=== PATIENT | female | born 1930 | race Caucasian/White ===

== ENCOUNTER 2017-01-19 11:37 | Outpatient (CLI) | payer MEDICARE, MEDICAID ==
[2017-01-19 12:38] LABS: Bilirubin Negative (Negative); Blood, Urine Trace (Negative); Clarity Clear (Clear); Glucose, Urine (Dipstick) Negative (Negative); Leukocyte Moderate (Negative); Nitrite Positive (Negative); Protein, Urine (Dipstick) Negative (Neg-Trace); Specific Gravity, Urine 1.015 (1.005-1.030); Urobilinogen 0.2 mg/dL (0.2-1.0)
[2017-01-19 12:40] LABS: #Basophils 0.1 thou/uL (0.0-0.2); #Eosinphils 0.7 thou/uL (0.0-0.7); #Lymphocytes 1.1 thou/uL (1.20-3.40); #Monocytes 0.8 thou/uL (0.11-0.59); #Neutrophils 6.6 thou/uL (1.40-6.50); %Basophils 1.3 % (0.0-1.0); %Eosinophils 7.8 % (0.0-10.0); %Lymphocytes 11.6 % (21.0-51.0); %Monocytes 8.4 % (0.0-10.0); %Neutrophils 70.8 % (42.0-75.0); Hemoglobin 12.9 g/dL (12.0-16.0); Mean Corpuscular HGB CONC 31.4 g/dL (32.0-36.0); Mean Corpuscular Hemoglobin 31.3 pg (27.0-31.0); Mean Corpuscular Volume 99.6 fl (81.0-99.0); Mean Platelet Volume 7.2 fL (7.4-10.4); Platelet Count 356 thou/uL (130-400); RBC Distribution Width 11.9 % (11.5-14.5); Red Blood Cell (RBC) Count 4.13 mill/uL (4.20-5.40); White Blood Cell (WBC) Count 9.3 thou/uL (4.8-10.8)
[2017-01-19 12:58] LABS: ALT (SGPT) 16 U/L (0-55); AST (SGOT) 18 U/L (5-34); Albumin 3.7 g/dL (3.4-4.8); Alkaline Phosphatase 63 U/L (40-150); Anion Gap 15 mmol/L (10-20); BUN (Urea Nitrogen) 15 mg/dL (9.8-20.1); Bilirubin, Total 0.4 mg/dL (0.2-1.2); Calc. Creatinine Clearance 0 mL/min (70-130); Calcium 8.8 mg/dL (7.8-10.44); Carbon Dioxide 24 mmol/L (23-31); Cardiac Risk 3.7 (Less than 4.5); Chloride 107 mmol/L (98-107); Cholesterol 136 mg/dL (< 200 Desired); Estimated GFR-MDRD 57; Globulin 2.4 g/dL (2.4-3.5); Glucose 88 mg/dL (83-110); HDL Cholesterol 37 mg/dL (>60 Neg Risk); LDL Cholesterol, Calculated 74 mg/dL; Potassium 4.5 mmol/L (3.5-5.1); Protein, Total 6.1 g/dL (5.8-8.1); Sodium 141 mmol/L (136-145); Triglycerides 124 mg/dL (Less than 150)
[2017-01-19 13:02] LABS: Bacteria/HPF 2+ HPF (None Seen); RBC/HPF 0-3 HPF (0-3); Squamous Epithelial 0-3 HPF (0-3)
== END 2017-01-19 11:38 | disposition home or self-care (01) ==
LOC: NAVSJIPCSP 11:37
PROVIDERS: ATTEND Internal Medicine
DX: E78.5 Hyperlipidemia, unspecified (principal); I11.9 Hypertensive heart disease without heart failure; Z79.899 Other long term (current) drug therapy
CPT/HCPCS: 36415; 80053; 80061; 81003; 81015; 85025

== ENCOUNTER 2017-05-04 10:39 | Outpatient (CLI) | payer MEDICARE, MEDICAID ==
[2017-05-04 14:18] LABS: Cardiac Risk 3.6 (Less than 4.5)
== END 2017-05-04 10:40 | disposition home or self-care (01) ==
LOC: NAVSJIPCSP 10:39
PROVIDERS: ATTEND Internal Medicine
DX: E78.5 Hyperlipidemia, unspecified (principal); Z79.899 Other long term (current) drug therapy
CPT/HCPCS: 36415; 80061

== ENCOUNTER 2018-02-18 17:25 | Inpatient (IN) | payer MEDICARE, MEDICAID ==
[2018-02-18] MEDS ORDERED: Lidocaine 2% Jelly 5 ML TUBE ONE (18:46)
[2018-02-18] MEDS ORDERED: Lidocaine Viscous Sol 2% 15 ml UD Cup ONE (18:47)
[2018-02-18] MEDS: Lidocaine Viscous Sol 2% 15 ml UD Cup SSP PRN (19:00)
[2018-02-18] MEDS: Dicyclomine 20 MG TAB PO SCH (21:42)
[2018-02-18] MEDS: Carbidopa/Levodopa 10-100 mg Tablet PO SCH (21:42)
[2018-02-18] MEDS: TROSPIUM 20 MG TABLET PO SCH (21:43)
[2018-02-19] MEDS: Acetaminophen 500 MG TAB PO PRN ×2 (00:47→21:04)
[2018-02-19] MEDS ORDERED: Lidocaine Viscous Sol 2% 15 ml UD Cup ONE ×2 (00:50→08:51)
[2018-02-19] MEDS: Lidocaine Viscous Sol 2% 15 ml UD Cup SSP PRN ×4 (00:51→21:03)
--- NOTE | 2018-02-19 00:58 | HP ---
DATE OF ADMISSION: 02/18/2018 CHIEF COMPLAINT: 1. Resolving acute hypoxic respiratory failure. 2. Resolving community-acquired pneumonia. 3. Resolving acute on chronic diastolic congestive heart failure. 4. Coronary artery disease with recent [id number] myocardial infarction and significant decond itioning. BRIEF HISTORY: This is a very pleasant 87-year-old female, who was admitted to [facility] with acute hypoxic respiratory failure. She was diagnosed with human metapneumovirus. Initially, she was placed on IV antibiotics, which were discontinued. She also had non-STEMI due t o demand ischemia. She had an episode of confusion, which was diagnosed with metabolic encephalopath y. She did come in with renal insufficiency, which has resolved. She also had an episode of atrial fibrillation and was started on digoxin by Cardiology. She was not felt to be a candidate for antico agulation due to her risk for falls. She was also diuresed due to acute on chronic diastolic congest brittney heart failure. She is now on nasal cannula. She has been noted to be significantly deconditione d and the initial plan was for her to go home with home health, but they felt that she may benefit fr om some inpatient therapy in a [facility] facility, and so has been transferred here. Ms. Sterling does complain of some soreness in her mouth, but otherwise she denies any concerns or questions. Sh e denies any chest pain. She denies any shortness of breath. She is resting comfortably. Denies an y fever or chills. Her cough is much improved. PAST MEDICAL HISTORY: 1. Hypertension. 2. Dyslipidemia. 3. Gastroesophageal reflux disease. 4. Hypothyroidism. 5. Irritable bowel syndrome. 6. Vitamin B12 deficiency. 7. Degenerative joint disease. 8. Recent episode of atrial fibrillation, rate controlled. 9. Vrz-[id number]-[id number] elevation myocardial infarction likely due to demand ischemia. 10. Chronic diastolic congestive heart failure. 11. Possible Parkinson. 12. Obesity. 13. Significant deconditioning. 14. Anxiety and depression. PAST SURGICAL HISTORY: 1. Appendectomy. 2. Total abdominal hysterectomy. 3. Left femur fracture requiring surgery x2. FAMILY HISTORY: Noncontributory to current admission. PSYCHOSOCIAL HISTORY: She lives at home. Denies any tobacco, alcohol, or IV drug abuse. She was mo bile with her walker. ALLERGIES: PENICILLIN and CODEINE. CURRENT MEDICATIONS: She has been transferred here on the following medications: 1. Ecotrin 81 mg daily. 2. Lipitor 20 mg daily. 3. Sinemet 10/100, one tablet t.i.d. 4. Celexa 20 mg daily. 5. Digoxin 0.125 mg daily. 6. Lasix 40 mg daily. 7. Synthroid 50 mcg daily in the morning on an empty stomach. 8. Bentyl 10 mg t.i.d. 9. Lisinopril 2.5 mg daily. 10. Zantac 150 mg daily. Zantac is supposed to be 150 b.i.d. 11. VESIcare 10 mg daily. REVIEW OF SYSTEMS: Cardiovascular: The patient denies any chest pain at this time. She states her shortness of breath is much improved. Denies any PND or orthopnea. Denies any palpitations. Respir atory: Her cough is much improved. Denies any pleuritic-type chest pain. Denies any hemoptysis or expectoration. Gastrointestinal: Denies any nausea, vomiting, diarrhea, constipation, hematemesis, melena, hematochezia. She did have an episode of diarrhea in the hospital, but that has since [facility] ed. If she has another episode, we will do stool for C. diff. Genitourinary: Denies any frequency, urgency, dysuria, hematuria. She is on VESIcare. Central nervous system: Generalized weakness. H EENT: No difficulty with speech, hearing, or swallowing. Head/Neck: She has not noticed any change in vision or any enlarged lymph nodes. Skin: She denies any rash. PHYSICAL EXAMINATION: GENERAL: Very pleasant 87-year-old, overweight, female who is resting comfortably in no ap parent distress. She responds appropriately to questions. She is alert, awake, and oriented x3. Sh e does have hoarse voice. VITAL SIGNS: She is afebrile, heart rate 70, respirations 18, oxygen saturation 98% on 2 liters, blo od pressure is 100/57. HEENT: Normocephalic, atraumatic. Pupils equally reactive to light and accommodation. NECK: No JVD, thyromegaly, cervical lymphadenopathy, throat exudates. No carotid bruits. CARDIOVASCULAR: S1, S2 plus. Rate and rhythm are irregularly irregular. Systolic murmur 2/6 heard in the mitral region. RESPIRATORY: Normal vesicular breath sounds with decreased air entry in the bases. Occasional rhonc hi. ABDOMEN: Soft, obese, nontender. Bowel sounds heard in all quadrants. EXTREMITIES: Without cyanosis or clubbing. Trace edema. Degenerative joint disease is present. CENTRAL NERVOUS SYSTEM: Grossly nonfocal. LABORATORY DATA: Her last laboratory values done were on the , which showed slight anemia with h emoglobin of 8.4 and 26.4. She did have an elevated white count of 16.5. She has not had any lab va lues since then. We will order a BMP and CBC for the morning to monitor her anemia, her leukocytosis , and her renal function. Last BUN and creatinine were 28 and 1.11. IMPRESSION: 1. Resolving acute hypoxemic respiratory failure due to community-acquired pneumonia from human meta pneumovirus. 2. Resolving acute on chronic diastolic congestive heart failure. 3. Atrial fibrillation with controlled rate. 4. Hypertension, well controlled. 5. Dyslipidemia. 6. Gastroesophageal reflux disease. 7. Hypothyroidism. 8. Tremors, likely due to Parkinson. 9. Deconditioning. 10. Obesity. 11. Degenerative joint disease. 12. Anxiety and depression. 13. Irritable bowel syndrome. PLAN: 1. Continue current medications. 2. Heart healthy diet. 3. DVT and stress ulcer prophylaxis with PlexiPulse and Zantac. 4. Increase Bentyl to 10 mg t.i.d. 5. Increase Zantac to 150 b.i.d. 6. Recheck BMP, CBC, and BNP in the morning. 7. PT/OT evaluate and treat. 8. Decubitus precautions. 9. Discussed with the patient in detail. All questions answered. 10. Titrate oxygen. 11. No family at bedside.
[2018-02-19 05:24] LABS: #Basophils 0.2 thou/uL (0.0-0.2); #Eosinphils 0.4 thou/uL (0.0-0.7); #Lymphocytes 1.3 thou/uL (1.20-3.40); #Neutrophils 8.1 thou/uL (1.40-6.50); %Basophils 1.5 % (0.0-1.0); %Eosinophils 3.8 % (0.0-10.0); %Lymphocytes 11.8 % (21.0-51.0); %Monocytes 9.4 % (0.0-10.0); %Neutrophils 73.4 % (42.0-75.0); Hemoglobin 9.8 g/dL (12.0-16.0); Hypochromia MODERATE=16-30 cells (100X) (0-5/hpf); MDiff Complete? YES; Mean Corpuscular HGB CONC 29.8 g/dL (32.0-36.0); Mean Corpuscular Hemoglobin 28.4 pg (27.0-31.0); Mean Corpuscular Volume 95.2 fl (81.0-99.0); Mean Platelet Volume 7.5 fL (7.4-10.4); PLT Morphology Comment Appears Adequate; Platelet Count 372 thou/uL (130-400); RBC Distribution Width 14.6 % (11.5-14.5); Red Blood Cell (RBC) Count 3.43 mill/uL (4.20-5.40); White Blood Cell (WBC) Count 11.1 thou/uL (4.8-10.8)
[2018-02-19 05:40] LABS: BUN (Urea Nitrogen) 24 mg/dL (9.8-20.1); Calc. Creatinine Clearance 64 mL/min (70-130); Calcium 9.1 mg/dL (7.8-10.44); Estimated GFR-MDRD 69; Glucose 112 mg/dL (83-110)
[2018-02-19 05:44] LABS: Chloride 92 mmol/L (98-107); Potassium 4.1 mmol/L (3.5-5.1); Sodium 140 mmol/L (136-145)
[2018-02-19 05:59] LABS: Anion Gap 15 mmol/L (10-20); Carbon Dioxide 37 mmol/L (23-31)
[2018-02-19] MEDS: Levothyroxine Sodium 50 MCG TAB PO SCH (06:15)
[2018-02-19] MEDS: Dicyclomine 20 MG TAB PO SCH ×3 (08:42→21:04)
[2018-02-19] MEDS: Aspirin 81 mg Enteric Coated Tablet PO SCH (08:45)
[2018-02-19] MEDS: Atorvastatin Calcium 20 MG TAB PO SCH (08:45)
[2018-02-19] MEDS: Furosemide 40 MG TAB PO SCH (08:45)
[2018-02-19] MEDS: Lisinopril 5 MG TAB PO SCH (08:45)
[2018-02-19] MEDS: Digoxin 0.125 MG TAB PO SCH (08:46)
[2018-02-19] MEDS: Famotidine 20 MG TAB PO SCH ×2 (08:46→15:47)
[2018-02-19] MEDS: TROSPIUM 20 MG TABLET PO SCH ×2 (08:46→21:04)
[2018-02-19] MEDS: Carbidopa/Levodopa 10-100 mg Tablet PO SCH ×3 (08:46→21:04)
[2018-02-19] MEDS: Citalopram 20 MG TAB PO SCH (08:46)
[2018-02-19] MEDS ORDERED: Non-Formulary Item 1 EACH (Ranitidine Hcl [Ranitidine Hcl] 150 MG) PO SCH (09:00)
[2018-02-19] MEDS ORDERED: DICYCLOMINE 10 MG PO SCH (09:00)
--- NOTE | 2018-02-19 14:23 | PRG ---
DATE OF SERVICE: 02/19/2018 SUBJECTIVE: Ms. Sterling is doing well. Her mouth is doing much better. She denies any complaints. S he is working with therapy. REVIEW OF SYSTEMS: The patient denies any chest pain, shortness of breath, PND, orthopnea, or pedal edema. She also denies any nausea, vomiting, or diarrhea. She states that her oral sores are feelin g better. She denies any fever or chills. OBJECTIVE: VITAL SIGNS: She is afebrile, heart rate 70, respirations 21, oxygen saturation 95% on 2 liters, blo od pressure 105/58. CARDIOVASCULAR: S1, S2 plus. RESPIRATORY: Normal vesicular breath sounds. ABDOMEN: Soft, nontender, bowel sounds heard in all quadrants. EXTREMITIES: Without cyanosis or clubbing. Trace edema. Degenerative joint disease present. CENTRAL NERVOUS SYSTEM: Generalized weakness. LABORATORY VALUES: Done this morning shows a white count of 11.1, H&H is 9.8 and 32.7. Her last whi te count was 16. Sodium 140, potassium 4.1, BUN and creatinine is 24 and 0.79. BNP is 108.2. IMPRESSION: 1. Resolving pneumonia due to metapneumovirus. 2. Resolving diastolic congestive heart failure. 3. Resolved renal insufficiency. 4. Improving deconditioning. 5. Hypertension, well controlled. 6. Dyslipidemia. 7. Gastroesophageal reflux disease. 8. Hypothyroidism. 9. Degenerative joint disease. 10. Recent episode of atrial fibrillation, rate controlled. PLAN: 1. Continue current medications. 2. Nutritional support. 3. Heart healthy diet. 4. Deep venous thrombosis and stress ulcer prophylaxis. 5. Decubitus precautions. 6. Monitor renal function and leukocytosis. 7. Monitor heart rate. 8. Titrate oxygen. 9. Continue oral Xylocaine. 10. Discussed with patient in detail. All questions answered.
[2018-02-20] MEDS: Lidocaine Viscous Sol 2% 15 ml UD Cup SSP PRN ×5 (06:10→20:56)
[2018-02-20] MEDS: Levothyroxine Sodium 50 MCG TAB PO SCH (06:10)
[2018-02-20] MEDS: Furosemide 40 MG TAB PO SCH (07:45)
[2018-02-20] MEDS: Aspirin 81 mg Enteric Coated Tablet PO SCH (07:45)
[2018-02-20] MEDS: Famotidine 20 MG TAB PO SCH ×2 (07:45→17:09)
[2018-02-20] MEDS: Atorvastatin Calcium 20 MG TAB PO SCH (07:46)
[2018-02-20] MEDS: Citalopram 20 MG TAB PO SCH (07:46)
[2018-02-20] MEDS: Carbidopa/Levodopa 10-100 mg Tablet PO SCH ×3 (07:46→20:57)
[2018-02-20] MEDS: Dicyclomine 20 MG TAB PO SCH ×3 (07:46→20:57)
[2018-02-20] MEDS: Digoxin 0.125 MG TAB PO SCH (07:47)
[2018-02-20] MEDS: Lisinopril 5 MG TAB PO SCH (07:47)
[2018-02-20] MEDS: TROSPIUM 20 MG TABLET PO SCH ×2 (07:50→20:57)
--- NOTE | 2018-02-20 10:04 | PRG ---
DATE OF SERVICE: 02/20/[address] Naomi Flores. SUBJECTIVE: The patient is lying in the bed on oxygen, feels well. No shortness of breath or chest pain, and slowly improving weakness. She has denied any cough, sputum production, fever or chills. She has a recent history of pneumonia and exacerbation of diastolic heart failure, but no previous hi story of severe COPD. She does have a history of atrial fibrillation, paroxysmal during acute hospit alization, but is now on no anticoagulation because of her fall risk. OBJECTIVE: LUNGS: Show decreased breath sounds, but no rales or rhonchi. CARDIAC: Shows irregular, irregular rhythm. ABDOMEN: Soft, nontender. SKIN AND EXTREMITIES: Showed no edema. ASSESSMENT: 1. Resolving respiratory failure secondary to community-acquired pneumonia, viral. 2. Resolved acute on chronic diastolic heart failure. 3. Atrial fibrillation, rate controlled, with no anticoagulation. 4. Parkinson's tremor, stable. 5. Irritable bowel, stable. PLAN: Continue PT, OT. Continue current medications. Attempt to wean off oxygen in the next severa l days and incentive spirometer.
[2018-02-21] MEDS: Levothyroxine Sodium 50 MCG TAB PO SCH (06:16)
[2018-02-21] MEDS: Famotidine 20 MG TAB PO SCH ×2 (08:18→17:20)
[2018-02-21] MEDS: Furosemide 40 MG TAB PO SCH (08:18)
[2018-02-21] MEDS: Lidocaine Viscous Sol 2% 15 ml UD Cup SSP PRN ×4 (08:20→21:11)
[2018-02-21] MEDS: Acetaminophen 500 MG TAB PO PRN ×2 (08:20→21:12)
[2018-02-21] MEDS: Citalopram 20 MG TAB PO SCH (09:32)
[2018-02-21] MEDS: Aspirin 81 mg Enteric Coated Tablet PO SCH (09:32)
[2018-02-21] MEDS: Dicyclomine 20 MG TAB PO SCH ×3 (09:32→21:12)
[2018-02-21] MEDS: TROSPIUM 20 MG TABLET PO SCH ×2 (09:32→21:12)
[2018-02-21] MEDS: Digoxin 0.125 MG TAB PO SCH (09:33)
[2018-02-21] MEDS: Lisinopril 5 MG TAB PO SCH (09:33)
[2018-02-21] MEDS: Carbidopa/Levodopa 10-100 mg Tablet PO SCH ×3 (09:33→21:12)
[2018-02-21] MEDS: Atorvastatin Calcium 20 MG TAB PO SCH (09:33)
--- NOTE | 2018-02-21 21:01 | PRG ---
DATE OF SERVICE: 02/21/2018 SUBJECTIVE: The patient lying in the bed, resting well. No complaints of shortness of breath and in fact had her oxygen decreased to 1.5%. Has had no a palpitation or chest pain. OBJECTIVE: VITAL SIGNS: Blood pressure is 102/51, pulse 70, temperature 97, O2 sats 98% on half liter. LUNGS: Show decreased breath sounds, no rales or rhonchi. CARDIAC: Shows irregularly irregular rhythm. ASSESSMENT: 1. Resolving respiratory failure secondary to community-acquired viral pneumonia. 2. Resolved acute on chronic diastolic heart failure. 3. Rate controlled anticoagulation. 4. Parkinson disease, stable. 5. Irritable bowel, stable. PLAN: Continue PT, OT. Continue current medications. Continue to attempt to wean off oxygen.
[2018-02-22] MEDS: Levothyroxine Sodium 50 MCG TAB PO SCH (06:11)
[2018-02-22] MEDS: TROSPIUM 20 MG TABLET PO SCH ×2 (08:46→20:52)
[2018-02-22] MEDS: Acetaminophen 500 MG TAB PO PRN ×2 (08:46→20:52)
[2018-02-22] MEDS: Dicyclomine 20 MG TAB PO SCH ×3 (08:47→20:52)
[2018-02-22] MEDS: Aspirin 81 mg Enteric Coated Tablet PO SCH (08:47)
[2018-02-22] MEDS: Digoxin 0.125 MG TAB PO SCH (08:47)
[2018-02-22] MEDS: Citalopram 20 MG TAB PO SCH (08:47)
[2018-02-22] MEDS: Lisinopril 5 MG TAB PO SCH (08:47)
[2018-02-22] MEDS: Famotidine 20 MG TAB PO SCH ×2 (08:47→15:48)
[2018-02-22] MEDS: Atorvastatin Calcium 20 MG TAB PO SCH (08:48)
[2018-02-22] MEDS: Carbidopa/Levodopa 10-100 mg Tablet PO SCH ×3 (08:48→20:52)
[2018-02-22] MEDS: Furosemide 40 MG TAB PO SCH (08:48)
[2018-02-22] MEDS: Lidocaine Viscous Sol 2% 15 ml UD Cup SSP PRN ×2 (08:51→20:52)
[2018-02-22] MEDS: Ondansetron ODT 4 MG TAB PO PRN (12:30)
--- NOTE | 2018-02-22 13:31 | PRG ---
DATE OF SERVICE: 02/22/2018 SUBJECTIVE: Ms. Sterling is doing well, slowly getting stronger. Denies any chest pain or shortness of breath. Her daughter and grandson are in the room. They want her to get another walker, as her wal ker is more than 10 years old and it is apparently falling apart. She wants the one with 2 wheels in the front that is what she is using here. REVIEW OF SYSTEMS: The patient denies any chest pain or shortness of breath. She denies any nausea, vomiting, diarrhea. She denies any frequency, urgency, dysuria, and her hoarseness is improving. OBJECTIVE: VITAL SIGNS: She is afebrile, heart rate 71, respirations 18, oxygen saturation 98%. Currently, she is sitting on room air, blood pressure is 105/52. CARDIOVASCULAR SYSTEM: S1 and S2 plus. RESPIRATORY SYSTEM: Normal vesicular breath sounds. ABDOMEN: Soft, nontender, bowel sounds heard in all quadrants, obese. EXTREMITIES: Without cyanosis or clubbing. Trace edema. CENTRAL NERVOUS SYSTEM: Improving deconditioning. IMPRESSION: 1. Resolving hypoxemic respiratory failure due to community-acquired pneumonia. 2. Resolved acute on chronic diastolic congestive heart failure. 3. Atrial fibrillation, now in sinus rhythm. 4. Hypertension, well controlled. 5. Dyslipidemia. 6. Gastroesophageal reflux disease. 7. Hypothyroidism. 8. Improving deconditioning. PLAN: 1. Continue current medications. 2. Nutritional support. 3. DVT and stress ulcer prophylaxis. 4. Decubitus precautions. 5. Physical therapy. 6. Asked case management to order her a walker. 7. Routine laboratory values. 8. Discussed with patient and family in detail. All questions answered.
[2018-02-23] MEDS: Levothyroxine Sodium 50 MCG TAB PO SCH (05:51)
[2018-02-23] MEDS: Lisinopril 5 MG TAB PO SCH (09:30)
[2018-02-23] MEDS: Dicyclomine 20 MG TAB PO SCH ×3 (09:55→20:59)
[2018-02-23] MEDS: Famotidine 20 MG TAB PO SCH ×2 (09:58→16:38)
[2018-02-23] MEDS: Furosemide 40 MG TAB PO SCH (10:00)
[2018-02-23] MEDS: Aspirin 81 mg Enteric Coated Tablet PO SCH (10:00)
[2018-02-23] MEDS: Atorvastatin Calcium 20 MG TAB PO SCH (10:01)
[2018-02-23] MEDS: Carbidopa/Levodopa 10-100 mg Tablet PO SCH ×3 (10:02→20:59)
[2018-02-23] MEDS: Citalopram 20 MG TAB PO SCH (10:02)
[2018-02-23] MEDS: Digoxin 0.125 MG TAB PO SCH (10:05)
[2018-02-23] MEDS: TROSPIUM 20 MG TABLET PO SCH ×2 (10:07→20:59)
[2018-02-23] MEDS: Acetaminophen 500 MG TAB PO PRN (10:12)
[2018-02-23] MEDS: Lidocaine Viscous Sol 2% 15 ml UD Cup SSP PRN ×2 (12:29→17:23)
--- NOTE | 2018-02-23 13:40 | PRG ---
DATE OF SERVICE: 02/23/2018 SUBJECTIVE: Mr. Sterling is doing well. Denies any complaints, resting comfortably up in her chair. S he apparently did have some low blood pressure readings, but she is completely asymptomatic other janki n lisinopril 2.5. She is really not on any other medication which could affect her blood pressure. I am going to put it on hold, just so the therapist will be more comfortable working with the patien t. Apparently, they are not doing a whole lot since they are worried about the low blood pressure. She denies any chest pain or shortness of breath. Denies any lightheadedness, dizziness, denies any nausea, vomiting, diarrhea. OBJECTIVE: VITAL SIGNS: She is afebrile, heart rate 66, respirations are 17, oxygen saturation is 98% on 1.5 li ters, blood pressure this morning was 108/53 and with therapy, it was 95/49 sitting, and 89/57 lying down. CARDIOVASCULAR SYSTEM: S1, S2 plus. RESPIRATORY SYSTEM: Normal vesicular breath sounds. ABDOMEN: Soft, obese, nontender. Bowel sounds heard in all quadrants. EXTREMITIES: Without cyanosis or clubbing. Trace edema. IMPRESSION: 1. Resolving pneumonia due to metapneumovirus. 2. Improving hypoxemia. 3. Resolved acute on chronic diastolic congestive heart failure. 4. Deconditioning with slow improvement. 5. Hypertension. Will discontinue lisinopril due to blood pressure being in the low 90s and low 100 s. 6. Dyslipidemia, stable. 7. Gastric reflux disease, stable. 8. Hypothyroidism. PLAN: 1. Continue current medications except her lisinopril. 2. Encourage p.o. fluid intake. 3. Physical therapy. 4. Titrate oxygen. 5. Heart healthy diet. 6. DVT and stress ulcer prophylaxis. 7. Decubitus precautions. 8. Recheck renal function and blood counts in the morning.
[2018-02-24 05:20] LABS: #Basophils 0.1 thou/uL (0.0-0.2); #Eosinphils 0.1 thou/uL (0.0-0.7); #Lymphocytes 1.2 thou/uL (1.20-3.40); #Monocytes 0.5 thou/uL (0.11-0.59); #Neutrophils 4.9 thou/uL (1.40-6.50); %Eosinophils 1.9 % (0.0-10.0); %Lymphocytes 18.1 % (21.0-51.0); %Monocytes 6.9 % (0.0-10.0); %Neutrophils 72.1 % (42.0-75.0); Hemoglobin 9.2 g/dL (12.0-16.0); Mean Corpuscular HGB CONC 30.8 g/dL (32.0-36.0); Mean Corpuscular Volume 93.9 fl (81.0-99.0); Mean Platelet Volume 7.3 fL (7.4-10.4); Platelet Count 275 thou/uL (130-400); RBC Distribution Width 14.5 % (11.5-14.5); Red Blood Cell (RBC) Count 3.18 mill/uL (4.20-5.40); White Blood Cell (WBC) Count 6.7 thou/uL (4.8-10.8)
[2018-02-24] MEDS: Levothyroxine Sodium 50 MCG TAB PO SCH (05:36)
[2018-02-24 05:39] LABS: Anion Gap 13 mmol/L (10-20); BUN (Urea Nitrogen) 16 mg/dL (9.8-20.1); Calc. Creatinine Clearance 62 mL/min (70-130); Calcium 8.3 mg/dL (7.8-10.44); Carbon Dioxide 37 mmol/L (23-31); Chloride 92 mmol/L (98-107); Estimated GFR-MDRD 67; Glucose 86 mg/dL (83-110); Potassium 3.8 mmol/L (3.5-5.1); Sodium 138 mmol/L (136-145)
[2018-02-24] MEDS ORDERED: Lidocaine Viscous Sol 2% 15 ml UD Cup ONE (07:22)
[2018-02-24] MEDS: Lidocaine Viscous Sol 2% 15 ml UD Cup SSP PRN (07:36)
[2018-02-24] MEDS: Famotidine 20 MG TAB PO SCH ×2 (07:36→16:35)
[2018-02-24] MEDS: Furosemide 40 MG TAB PO SCH (07:36)
[2018-02-24] MEDS: Acetaminophen 500 MG TAB PO PRN (09:07)
[2018-02-24] MEDS: Atorvastatin Calcium 20 MG TAB PO SCH (09:07)
[2018-02-24] MEDS: Carbidopa/Levodopa 10-100 mg Tablet PO SCH ×3 (09:08→20:50)
[2018-02-24] MEDS: Digoxin 0.125 MG TAB PO SCH (09:08)
[2018-02-24] MEDS: Dicyclomine 20 MG TAB PO SCH ×3 (09:09→20:51)
[2018-02-24] MEDS: Citalopram 20 MG TAB PO SCH (09:11)
[2018-02-24] MEDS: Aspirin 81 mg Enteric Coated Tablet PO SCH (09:13)
[2018-02-24] MEDS: TROSPIUM 20 MG TABLET PO SCH ×2 (09:15→20:50)
--- NOTE | 2018-02-24 13:17 | PRG ---
DATE OF SERVICE: 02/24/2018 SUBJECTIVE: Ms. Sterling is doing well. Denies any complaints, resting comfortably, still requiring ox ygen, but she states that she is getting stronger. Denies any chest pain or shortness of breath. OBJECTIVE: VITAL SIGNS: She is afebrile, heart rate 65, respirations 18, oxygen saturation 97% on 1-1.5 liters of nasal cannula, blood pressure is 111/55. CARDIOVASCULAR: S1, S2 plus. RESPIRATORY: Normal vesicular breath sounds with occasional crackles. ABDOMEN: Soft, nontender, bowel sounds heard in all quadrants. EXTREMITIES: Without cyanosis or clubbing. Trace edema. CENTRAL NERVOUS SYSTEM: Improving deconditioning. LABORATORY VALUES: Sodium 138, potassium 3.8, BUN and creatinine 16 and 0.81. BNP was 108.2 on admi ssion, white count of 6.7, down from 11.1, H&H is 9.2 and 29.9. IMPRESSION: 1. Resolving metapneumovirus pneumonia. 2. Resolved acute on chronic diastolic congestive heart failure. 3. Improving deconditioning. 4. Hypoxemia. 5. Hypertension. 6. Dyslipidemia. 7. Gastroesophageal reflux disease. 8. Hypothyroidism. PLAN: 1. Continue current medications. 2. Blood pressure is better since stopping the lisinopril. 3. Continue to titrate oxygen as tolerated. She probably will need to go home on oxygen. 4. DVT and stress ulcer prophylaxis. 5. Decubitus precautions. 6. Physical therapy. 7. Routine laboratory values to monitor renal function and blood counts.
[2018-02-24] MEDS: Ondansetron ODT 4 MG TAB PO PRN (13:25)
[2018-02-25] MEDS: Lidocaine Viscous Sol 2% 15 ml UD Cup SSP PRN (04:35)
[2018-02-25] MEDS: Levothyroxine Sodium 50 MCG TAB PO SCH (05:17)
[2018-02-25] MEDS: Famotidine 20 MG TAB PO SCH ×2 (07:32→16:18)
[2018-02-25] MEDS: Furosemide 40 MG TAB PO SCH (07:32)
[2018-02-25] MEDS: Ondansetron ODT 4 MG TAB PO PRN (08:56)
[2018-02-25] MEDS: Acetaminophen 500 MG TAB PO PRN ×2 (08:57→16:19)
[2018-02-25] MEDS: Atorvastatin Calcium 20 MG TAB PO SCH (08:58)
[2018-02-25] MEDS: Citalopram 20 MG TAB PO SCH (08:58)
[2018-02-25] MEDS: Carbidopa/Levodopa 10-100 mg Tablet PO SCH ×3 (08:58→20:30)
[2018-02-25] MEDS: Digoxin 0.125 MG TAB PO SCH (08:58)
[2018-02-25] MEDS: TROSPIUM 20 MG TABLET PO SCH ×2 (08:59→20:30)
[2018-02-25] MEDS: Aspirin 81 mg Enteric Coated Tablet PO SCH (08:59)
[2018-02-25] MEDS: Dicyclomine 20 MG TAB PO SCH ×3 (09:08→20:30)
--- NOTE | 2018-02-25 13:46 | PRG ---
DATE OF SERVICE: 02/25/2018 SUBJECTIVE: Ms. Sterling is still having lightheadedness and hypotension when they get her to stand for therapy. She apparently also gets nauseous. She has hardly been eating anything. I again reinforc ed the need for her to eat and drink plenty of water and stay away from the caffeinated drinks. I ad vised her that since it is not really improving with stopping her lisinopril, I am going to add some pressure stockings and also hold her Lasix for a couple of days. OBJECTIVE: VITAL SIGNS: She is afebrile, heart rate is 65, respirations are 21, oxygen saturation is 96% on 1 l iter, blood pressure on lying down was 104/58 and standing was 79/46. CARDIOVASCULAR: S1, S2 plus. RESPIRATORY: Normal vesicular breath sounds. ABDOMEN: Soft, nontender, obese. Bowel sounds heard in all quadrants. EXTREMITIES: Without cyanosis or clubbing. Peripheral pulses are palpable. CENTRAL NERVOUS SYSTEM: Generalized weakness. IMPRESSION: 1. Orthostatic hypotension likely decreased due to decreased p.o. intake as well as her Lasix. 2. Chronic diastolic congestive heart failure. 3. Resolving metapneumovirus pneumonia. 4. Deconditioning. 5. Dyslipidemia. 6. Gastric reflux disease. 7. Hypothyroidism. PLAN: 1. Continue current medications. 2. Stop Lasix. 3. ____. 4. DVT and stress ulcer prophylaxis. 5. Decubitus precautions. 6. Physical therapy. 7. I discussed with the patient and nursing. She is to drink at least 4 bottles of bottled water a day and stay away from caffeinated drinks and eat better.
[2018-02-26] MEDS: Levothyroxine Sodium 50 MCG TAB PO SCH (05:49)
[2018-02-26] MEDS: Famotidine 20 MG TAB PO SCH ×2 (07:32→16:09)
[2018-02-26] MEDS: Aspirin 81 mg Enteric Coated Tablet PO SCH (09:04)
[2018-02-26] MEDS: TROSPIUM 20 MG TABLET PO SCH ×2 (09:04→20:07)
[2018-02-26] MEDS: Atorvastatin Calcium 20 MG TAB PO SCH (09:04)
[2018-02-26] MEDS: Digoxin 0.125 MG TAB PO SCH (09:04)
[2018-02-26] MEDS: Citalopram 20 MG TAB PO SCH (09:04)
[2018-02-26] MEDS: Carbidopa/Levodopa 10-100 mg Tablet PO SCH ×3 (09:04→20:08)
[2018-02-26] MEDS: Dicyclomine 20 MG TAB PO SCH ×3 (09:04→20:07)
[2018-02-26] MEDS: Acetaminophen 500 MG TAB PO PRN ×2 (09:09→16:08)
[2018-02-27] MEDS: Levothyroxine Sodium 50 MCG TAB PO SCH (05:47)
[2018-02-27] MEDS: Famotidine 20 MG TAB PO SCH ×2 (07:28→15:53)
[2018-02-27] MEDS: Dicyclomine 20 MG TAB PO SCH ×3 (08:46→21:02)
[2018-02-27] MEDS: Carbidopa/Levodopa 10-100 mg Tablet PO SCH ×3 (08:47→21:02)
[2018-02-27] MEDS: Aspirin 81 mg Enteric Coated Tablet PO SCH (08:47)
[2018-02-27] MEDS: Acetaminophen 500 MG TAB PO PRN ×3 (08:47→21:04)
[2018-02-27] MEDS: Atorvastatin Calcium 20 MG TAB PO SCH (08:47)
[2018-02-27] MEDS: Digoxin 0.125 MG TAB PO SCH (08:47)
[2018-02-27] MEDS: Citalopram 20 MG TAB PO SCH (08:48)
[2018-02-27] MEDS: TROSPIUM 20 MG TABLET PO SCH ×2 (08:48→21:02)
--- NOTE | 2018-02-27 10:40 | PRG ---
DATE OF SERVICE: 02/27/2018 SUBJECTIVE: Ms. Sterling is doing well. Denies any complaints, resting comfortably. The AVIS hose real ly helped with her blood pressure and her orthostatic hypotension, according to nursing. I advised t he patient to make sure she wears it in the daytime, she can remove it at night. She is concerned th at it is a little tight. I also asked them to find the largest one they have. OBJECTIVE: VITAL SIGNS: She is afebrile, heart rate 73, respirations 21, oxygen saturation marked as 90% this m orning, but I had the nurses recheck it again and it is 94% on room air, blood pressure 108/52. CARDIOVASCULAR: S1, S2 plus, rate and rhythm regular. RESPIRATORY: Normal vesicular breath sounds heard in all lung trevino. ABDOMEN: Soft, nontender, bowel sounds heard in all quadrants. EXTREMITIES: Without cyanosis or clubbing. IMPRESSION: 1. Chronic diastolic congestive heart failure. 2. Improving deconditioning. 3. Orthostatic hypotension, improved with AVIS hose. 4. Dyslipidemia, stable. 5. Gastroesophageal reflux disease, stable. 6. Hypothyroidism. PLAN: 1. Continue current medications. 2. Monitor heart failure since she is off the Lasix. 3. Continue AVIS hose in the daytime. 4. Deep venous thrombosis and stress ulcer prophylaxis. 5. Decubitus precautions. 6. Routine laboratory values.
[2018-02-28] MEDS: Levothyroxine Sodium 50 MCG TAB PO SCH (06:06)
[2018-02-28] MEDS: Digoxin 0.125 MG TAB PO SCH (08:29)
[2018-02-28] MEDS: Citalopram 20 MG TAB PO SCH (08:29)
[2018-02-28] MEDS: Famotidine 20 MG TAB PO SCH ×2 (08:29→16:38)
[2018-02-28] MEDS: TROSPIUM 20 MG TABLET PO SCH ×2 (08:29→20:46)
[2018-02-28] MEDS: Dicyclomine 20 MG TAB PO SCH ×3 (08:29→20:46)
[2018-02-28] MEDS: Atorvastatin Calcium 20 MG TAB PO SCH (08:30)
[2018-02-28] MEDS: Aspirin 81 mg Enteric Coated Tablet PO SCH (08:30)
[2018-02-28] MEDS: Carbidopa/Levodopa 10-100 mg Tablet PO SCH ×3 (08:30→20:46)
[2018-02-28] MEDS: Acetaminophen 500 MG TAB PO PRN (08:34)
--- NOTE | 2018-02-28 11:27 | PRG ---
DATE OF SERVICE: 02/28/2018 SUBJECTIVE: Ms. Sterling is doing well. She has her AVIS hose on. Denies any complaints. OBJECTIVE: VITAL SIGNS: She is afebrile, heart rate is 74, respirations are 16, it is documented as 23, oxygen saturation is 96% on room air, blood pressure is 103/57. CARDIOVASCULAR SYSTEM: S1 and S2 plus. RESPIRATORY SYSTEM: Normal vesicular breath sounds. ABDOMEN: Soft, obese, nontender. Bowel sounds heard in all quadrants. EXTREMITIES: Without cyanosis or clubbing. AVIS hose is on. IMPRESSION: 1. Chronic diastolic congestive heart failure, improving. 2. Orthostatic hypotension, improved with the AVIS hose. 3. Gastroesophageal reflux disease. 4. Improving deconditioning. 5. Dyslipidemia. 6. Hypothyroidism. PLAN: 1. Continue current medications. 2. AVIS hose in the daytime. 3. DVT and stress ulcer prophylaxis. 4. Decubitus precautions. 5. Recheck laboratory values in the morning. 6. Resume physical therapy in the morning.
[2018-03-01] MEDS: Levothyroxine Sodium 50 MCG TAB PO SCH (05:19)
[2018-03-01] MEDS: Ondansetron ODT 4 MG TAB PO PRN (05:50)
[2018-03-01 06:05] LABS: #Basophils 0.1 thou/uL (0.0-0.2); #Eosinphils 0.3 thou/uL (0.0-0.7); #Monocytes 0.8 thou/uL (0.11-0.59); #Neutrophils 6.3 thou/uL (1.40-6.50); %Basophils 1.2 % (0.0-1.0); %Eosinophils 4.1 % (0.0-10.0); %Lymphocytes 11.3 % (21.0-51.0); %Monocytes 9.9 % (0.0-10.0); %Neutrophils 73.5 % (42.0-75.0); Anion Gap 14 mmol/L (10-20); BUN (Urea Nitrogen) 8 mg/dL (9.8-20.1); Calc. Creatinine Clearance 67 mL/min (70-130); Calcium 8.6 mg/dL (7.8-10.44); Carbon Dioxide 29 mmol/L (23-31); Chloride 99 mmol/L (98-107); Estimated GFR-MDRD 73; Glucose 85 mg/dL (83-110); Hemoglobin 11.2 g/dL (12.0-16.0); Mean Corpuscular HGB CONC 30.3 g/dL (32.0-36.0); Mean Corpuscular Hemoglobin 28.6 pg (27.0-31.0); Mean Corpuscular Volume 94.3 fl (81.0-99.0); Mean Platelet Volume 7.1 fL (7.4-10.4); Platelet Count 303 thou/uL (130-400); Potassium 4.1 mmol/L (3.5-5.1); Red Blood Cell (RBC) Count 3.92 mill/uL (4.20-5.40); Sodium 138 mmol/L (136-145); White Blood Cell (WBC) Count 8.5 thou/uL (4.8-10.8)
[2018-03-01] MEDS: Atorvastatin Calcium 20 MG TAB PO SCH (08:06)
[2018-03-01] MEDS: Citalopram 20 MG TAB PO SCH (08:06)
[2018-03-01] MEDS: Aspirin 81 mg Enteric Coated Tablet PO SCH (08:06)
[2018-03-01] MEDS: Famotidine 20 MG TAB PO SCH ×2 (08:06→16:15)
[2018-03-01] MEDS: Digoxin 0.125 MG TAB PO SCH (08:06)
[2018-03-01] MEDS: Dicyclomine 20 MG TAB PO SCH ×3 (08:07→21:40)
[2018-03-01] MEDS: TROSPIUM 20 MG TABLET PO SCH ×2 (08:07→21:40)
[2018-03-01] MEDS: Carbidopa/Levodopa 10-100 mg Tablet PO SCH ×3 (08:07→21:40)
--- NOTE | 2018-03-01 09:32 | PRG ---
DATE OF SERVICE: 03/01/2018 SUBJECTIVE: Ms. Sterling is doing well. Denies any complaints, resting comfortably, getting ready for therapy. OBJECTIVE: VITAL SIGNS: She is afebrile, heart rate is 85, respirations 25, oxygen saturation 91% on room air, blood pressure 127/65. CARDIOVASCULAR: S1, S2 plus. RESPIRATORY: Normal vesicular breath sounds. ABDOMEN: Soft, nontender, obese. Bowel sounds heard in all quadrants. EXTREMITIES: Without cyanosis or clubbing. CENTRAL NERVOUS SYSTEM: Improving deconditioning. LABORATORY VALUES: White count is 8.5, H&H is 11.2 and 37. Sodium 138, potassium 4.1, BUN and creat inine is 8 and 0.75. IMPRESSION: 1. Chronic diastolic congestive heart failure. 2. Resolving pneumonia due to metapneumovirus. 3. Orthostatic hypotension, improved with AVIS hose. 4. Gastroesophageal reflux disease. 5. Dyslipidemia. 6. Improving deconditioning. PLAN: 1. Continue current medications. 2. Heart healthy diet. 3. DVT and stress ulcer prophylaxis. 4. Decubitus precautions. 5. Routine laboratory values. 6. Continue physical therapy. 7. Continue AVIS hose during the daytime. 8. Discussed with patient in detail. All questions answered.
[2018-03-02] MEDS: Levothyroxine Sodium 50 MCG TAB PO SCH (05:50)
[2018-03-02] MEDS: Atorvastatin Calcium 20 MG TAB PO SCH (08:10)
[2018-03-02] MEDS: Aspirin 81 mg Enteric Coated Tablet PO SCH (08:10)
[2018-03-02] MEDS: Famotidine 20 MG TAB PO SCH ×2 (08:10→15:35)
[2018-03-02] MEDS: Carbidopa/Levodopa 10-100 mg Tablet PO SCH ×3 (08:11→21:34)
[2018-03-02] MEDS: TROSPIUM 20 MG TABLET PO SCH ×2 (08:11→21:34)
[2018-03-02] MEDS: Digoxin 0.125 MG TAB PO SCH (08:11)
[2018-03-02] MEDS: Citalopram 20 MG TAB PO SCH (08:11)
[2018-03-02] MEDS: Dicyclomine 20 MG TAB PO SCH ×3 (08:11→21:34)
--- NOTE | 2018-03-02 13:26 | PRG ---
DATE OF SERVICE: 03/02/2018 SUBJECTIVE: Ms. Sterling is doing well. Denies any complaints, resting comfortably, AVIS hose is really helping with her blood pressure. She apparently is having some desaturation with therapy and requir es oxygen. She apparently stops breathing when she is exerting herself. She is trying to work [employer] gh that. I advised nursing to monitor that closely in case we need to arrange for home oxygen. She is supposed to get an ambulatory pulse ox tomorrow with therapy according to nurse. OBJECTIVE: VITAL SIGNS: She is afebrile, heart rate 78, respirations 24, oxygen saturation was 82% on room air, but then she was placed on nasal cannula and it was 94, blood pressure 96/55, heart rate was 75. CARDIOVASCULAR: S1, S2 plus. RESPIRATORY: Normal vesicular breath sounds. ABDOMEN: Soft, obese, nontender. Bowel sounds heard in all quadrants. EXTREMITIES: Without cyanosis or clubbing, AVIS hose in place. CENTRAL NERVOUS SYSTEM: Improving deconditioning. IMPRESSION 1. Hypoxemia, on exertion. We will continue to monitor and do an ambulatory pulse ox. 2. Resolved acute on chronic diastolic heart failure. 3. Improving pneumonia due to metapneumovirus. 4. Hypertension, well controlled. 5. Dyslipidemia. 6. Gastroesophageal reflux disease. 7. Improving deconditioning. PLAN: 1. Continue current medications. 2. Nutritional support. 3. Heart healthy diet. 4. DVT and stress ulcer prophylaxis. 5. Decubitus precautions. 6. Routine laboratory values. 7. Ambulatory pulse oximetry. 8. Discussed with therapy as to when patient may be ready for discharge. 9. Discussed with the patient and nursing in detail. All questions answered.
[2018-03-03] MEDS: Levothyroxine Sodium 50 MCG TAB PO SCH (05:28)
[2018-03-03] MEDS: Famotidine 20 MG TAB PO SCH ×2 (08:12→15:54)
[2018-03-03] MEDS: Aspirin 81 mg Enteric Coated Tablet PO SCH (09:01)
[2018-03-03] MEDS: Carbidopa/Levodopa 10-100 mg Tablet PO SCH ×3 (09:02→21:46)
[2018-03-03] MEDS: Atorvastatin Calcium 20 MG TAB PO SCH (09:02)
[2018-03-03] MEDS: Citalopram 20 MG TAB PO SCH (09:02)
[2018-03-03] MEDS: Dicyclomine 20 MG TAB PO SCH ×3 (09:03→21:45)
[2018-03-03] MEDS: Digoxin 0.125 MG TAB PO SCH (09:04)
[2018-03-03] MEDS: TROSPIUM 20 MG TABLET PO SCH ×2 (09:05→21:45)
[2018-03-04] MEDS: Ondansetron ODT 4 MG TAB PO PRN (01:16)
[2018-03-04] MEDS: Levothyroxine Sodium 50 MCG TAB PO SCH (06:04)
[2018-03-04] MEDS: Famotidine 20 MG TAB PO SCH ×2 (07:48→17:22)
[2018-03-04] MEDS: Carbidopa/Levodopa 10-100 mg Tablet PO SCH ×3 (09:05→21:21)
[2018-03-04] MEDS: Digoxin 0.125 MG TAB PO SCH (09:05)
[2018-03-04] MEDS: Aspirin 81 mg Enteric Coated Tablet PO SCH (09:05)
[2018-03-04] MEDS: TROSPIUM 20 MG TABLET PO SCH ×2 (09:05→21:20)
[2018-03-04] MEDS: Dicyclomine 20 MG TAB PO SCH ×3 (09:06→21:21)
[2018-03-04] MEDS: Citalopram 20 MG TAB PO SCH (09:06)
[2018-03-04] MEDS: Atorvastatin Calcium 20 MG TAB PO SCH (09:08)
--- NOTE | 2018-03-04 13:25 | PRG ---
DATE OF SERVICE: 03/04/2018 SUBJECTIVE: Ms. Sterling is doing well. Denies any complaints, resting comfortably, off her oxygen. H er daughter is in the room. Discussed with therapy yesterday and they anticipate her being ready to go home early next week. The patient and daughter deny any concerns or questions except they want a prescription for a walker. OBJECTIVE: VITAL SIGNS: She is afebrile, heart rate is 89, respirations are 20, oxygen saturation 93% on room a ir, blood pressure 94/58. CARDIOVASCULAR: S1, S2 plus. RESPIRATORY: Normal vesicular breath sounds. ABDOMEN: Soft, nontender, bowel sounds heard in all quadrants. EXTREMITIES: Without cyanosis or clubbing. Peripheral pulses are palpable. AVIS hose is present. CENTRAL NERVOUS SYSTEM: Improving deconditioning. IMPRESSION: 1. Resolved acute on chronic diastolic congestive heart failure. 2. Improving pneumonia due to metapneumovirus. 3. Improved orthostasis after placing AVIS hose. 4. Improving deconditioning. 5. Gastric reflux disease. 6. Dyslipidemia. 7. Resolved hypoxemia. PLAN: 1. Continue physical therapy. 2. Monitor oxygen levels. 3. Heart healthy diet. 4. DVT and stress ulcer prophylaxis. 5. Decubitus precautions. 6. Routine laboratory values. 7. Will write an order for a walker. 8. Discussed with patient, family and nursing in detail. All questions answered.
[2018-03-04] MEDS: Acetaminophen 500 MG TAB PO PRN (17:22)
[2018-03-05] MEDS: Levothyroxine Sodium 50 MCG TAB PO SCH (05:54)
[2018-03-05] MEDS: Citalopram 20 MG TAB PO SCH (08:57)
[2018-03-05] MEDS: Famotidine 20 MG TAB PO SCH ×2 (08:57→16:21)
[2018-03-05] MEDS: Acetaminophen 500 MG TAB PO PRN (08:57)
[2018-03-05] MEDS: Dicyclomine 20 MG TAB PO SCH ×3 (08:57→21:38)
[2018-03-05] MEDS: TROSPIUM 20 MG TABLET PO SCH ×2 (08:57→21:38)
[2018-03-05] MEDS: Atorvastatin Calcium 20 MG TAB PO SCH (08:57)
[2018-03-05] MEDS: Digoxin 0.125 MG TAB PO SCH (08:57)
[2018-03-05] MEDS: Carbidopa/Levodopa 10-100 mg Tablet PO SCH ×3 (08:57→21:38)
[2018-03-05] MEDS: Aspirin 81 mg Enteric Coated Tablet PO SCH (08:58)
[2018-03-06] MEDS: Levothyroxine Sodium 50 MCG TAB PO SCH (06:12)
[2018-03-06] MEDS: Citalopram 20 MG TAB PO SCH (09:19)
[2018-03-06] MEDS: TROSPIUM 20 MG TABLET PO SCH ×2 (09:19→21:08)
[2018-03-06] MEDS: Famotidine 20 MG TAB PO SCH ×2 (09:19→17:04)
[2018-03-06] MEDS: Dicyclomine 20 MG TAB PO SCH ×3 (09:19→21:08)
[2018-03-06] MEDS: Acetaminophen 500 MG TAB PO PRN (09:20)
[2018-03-06] MEDS: Carbidopa/Levodopa 10-100 mg Tablet PO SCH ×3 (09:20→21:08)
[2018-03-06] MEDS: Digoxin 0.125 MG TAB PO SCH (09:20)
[2018-03-06] MEDS: Atorvastatin Calcium 20 MG TAB PO SCH (09:20)
[2018-03-06] MEDS: Aspirin 81 mg Enteric Coated Tablet PO SCH (09:20)
[2018-03-06] MEDS ORDERED: Polyethylene Glycol OPTH DROP 15 ML BOT EA EYE PRN (20:30)
--- NOTE | 2018-03-06 22:16 | PRG ---
DATE OF SERVICE: 03/06/2018 HISTORY OF PRESENT ILLNESS: Ms. Sterling is a very pleasant 87-year-old white female that had acute hyp oxic respiratory failure. She had a human metapneumovirus. She also unfortunately developed a non-S NICHOLAS due to demand ischemia. She had a diastolic congestive heart failure and had an episode of meta bolic encephalopathy. She eventually was stabilized and eventually came back strongly was transferre d to [facility] for physical therapy and occupational therapy. SUBJECTIVE: The patient states she is doing very well tonight. She has no complaints. OBJECTIVE: VITAL SIGNS: This morning reveal blood pressure 123/59, pulse 81-88, respirations 22-20, T-max 97.6, oxygen saturation 92-93% on room air. GENERAL: This is a well-developed, well-nourished, white female in no apparent distress at this time . HEENT: Reveals normocephalic, nontraumatic cranium. Pupils equal, round, and reactive. Extraocular movements are intact. Nose and throat are dry, but clear. NECK: Supple, without mass, nodes or bruits. LUNGS: Chest is clear to auscultation. No rales, no rhonchi, no wheezes and no cough is noted today . CARDIOVASCULAR: Heart reveals a regular rate and rhythm without murmurs, gallops or rubs. ABDOMEN: Slightly obese, soft, nontender, without organomegaly, normal bowel sounds are noted. No r ebound or guarding is noted. : Deferred. EXTREMITIES: Reveal no clubbing, cyanosis or edema. NEUROLOGIC: Patient does have generalized weakness. IMPRESSION: 1. Acute on chronic diastolic congestive heart failure, much improved. 2. Orthostasis which has been much improved with AVIS hose. 3. Pneumonia due to metapneumovirus. 4. Gastroesophageal reflux disease. 5. Hyperlipidemia. 6. Respiratory failure, much improved. 7. Generalized weakness. PLAN: 1. Monitor the patient's oxygen. 2. DVT and stress ulcer prophylaxis. 3. Continue PT and OT. 4. Decubitus precautions. 5. Follow routine labs. We will repeat labs tomorrow. 6. All the patient's questions were answered.
[2018-03-07 05:21] LABS: #Basophils 0.2 thou/uL (0.0-0.2); #Eosinphils 0.3 thou/uL (0.0-0.7); #Lymphocytes 1.1 thou/uL (1.20-3.40); #Neutrophils 6.9 thou/uL (1.40-6.50); %Basophils 1.9 % (0.0-1.0); %Eosinophils 2.8 % (0.0-10.0); %Lymphocytes 11.3 % (21.0-51.0); %Monocytes 10.7 % (0.0-10.0); %Neutrophils 73.3 % (42.0-75.0); Hemoglobin 11.8 g/dL (12.0-16.0); Mean Corpuscular HGB CONC 30.3 g/dL (32.0-36.0); Mean Corpuscular Hemoglobin 28.5 pg (27.0-31.0); Mean Corpuscular Volume 94.4 fl (81.0-99.0); Mean Platelet Volume 6.7 fL (7.4-10.4); Platelet Count 319 thou/uL (130-400); RBC Distribution Width 13.7 % (11.5-14.5); Red Blood Cell (RBC) Count 4.14 mill/uL (4.20-5.40); White Blood Cell (WBC) Count 9.4 thou/uL (4.8-10.8)
[2018-03-07 05:42] LABS: ALT (SGPT) 7 U/L (8-55); AST (SGOT) 13 U/L (5-34); Albumin 2.9 g/dL (3.4-4.8); Alkaline Phosphatase 91 U/L (40-150); Anion Gap 12 mmol/L (10-20); BUN (Urea Nitrogen) 10 mg/dL (9.8-20.1); Bilirubin, Total 0.6 mg/dL (0.2-1.2); Calc. Creatinine Clearance 76 mL/min (70-130); Calcium 8.4 mg/dL (7.8-10.44); Carbon Dioxide 29 mmol/L (23-31); Chloride 101 mmol/L (98-107); Estimated GFR-MDRD 84; Globulin 2.8 g/dL (2.4-3.5); Glucose 80 mg/dL (83-110); Potassium 4.4 mmol/L (3.5-5.1); Protein, Total 5.7 g/dL (6.0-8.3); Sodium 138 mmol/L (136-145)
[2018-03-07] MEDS: Levothyroxine Sodium 50 MCG TAB PO SCH (05:55)
[2018-03-07] MEDS: Famotidine 20 MG TAB PO SCH ×2 (07:51→16:29)
[2018-03-07] MEDS: Atorvastatin Calcium 20 MG TAB PO SCH (08:27)
[2018-03-07] MEDS: Citalopram 20 MG TAB PO SCH (08:27)
[2018-03-07] MEDS: TROSPIUM 20 MG TABLET PO SCH ×2 (08:27→20:55)
[2018-03-07] MEDS: Dicyclomine 20 MG TAB PO SCH ×3 (08:27→20:55)
[2018-03-07] MEDS: Carbidopa/Levodopa 10-100 mg Tablet PO SCH ×3 (08:28→20:55)
[2018-03-07] MEDS: Digoxin 0.125 MG TAB PO SCH (08:28)
[2018-03-07] MEDS: Aspirin 81 mg Enteric Coated Tablet PO SCH (08:28)
--- NOTE | 2018-03-07 20:49 | PRG ---
DATE OF SERVICE: 03/07/2018 HISTORY OF PRESENT ILLNESS: Ms. Sterling is a very pleasant 87-year-old white female with acute hypoxem ic respiratory failure. She was found to have human metapneumovirus. Unfortunately, she developed a non-STEMI due to demand ischemia and had diastolic congestive heart failure and developed a metaboli c encephalopathy. Eventually, she cleared and was stabilized and transferred to [facility] for physical therapy and occupational therapy. SUBJECTIVE: The patient states she is doing well. She has no complaints today. She did have some lab work done which revealed a white count 9400, hemoglobin 11.8, hematocrit 39.1, platelet count 319,000. Sodium is 138, potassium 4.4, chloride 101, carbon dioxide 29 with a BUN 10, creatinine 0.67 and a dai gar of 80. OBJECTIVE: VITAL SIGNS: This morning reveal blood pressure 131/63, pulse 70-81, respirations 17, O2 sat 93% on room air, and T-max 97.8. GENERAL: She is a well-developed, well-nourished, pleasant white female in no apparent distress at t his time. HEENT: Reveals normocephalic, nontraumatic cranium. Pupils are equal, round, and reactive. Extraoc ular movements intact. Nose and throat are dry, but clear. NECK: Supple, without mass, nodes or bruits. LUNGS: Chest clear to auscultation. No rales, no rhonchi, no wheezes are heard today. No cough is noted today. CARDIOVASCULAR: Heart reveals a regular rate and rhythm without murmurs, gallops or rubs. ABDOMEN: Soft, nontender, without organomegaly, normal bowel sounds are noted in all 4 quadrants. N o rebound or guarding is noted. : Deferred. EXTREMITIES: Reveal no clubbing, cyanosis or edema. NEUROLOGIC: Patient has no focal deficits, just generalized weakness. IMPRESSION: 1. Acute on chronic diastolic congestive heart failure, much improved. 2. Orthostasis which is much improved with AVIS hose. 3. Pneumonia due to metapneumovirus. 4. Gastroesophageal reflux disease. 5. Hyperlipidemia. 6. Respiratory failure, much improved. 7. Generalized weakness. PLAN: 1. Continue to monitor the patient's oxygen requirements. 2. Deep venous thrombosis prophylaxis. 3. Stress ulcer prophylaxis. 4. Decubitus precautions. 5. Continue physical therapy and occupational therapy.
[2018-03-08] MEDS: Levothyroxine Sodium 50 MCG TAB PO SCH (05:34)
[2018-03-08] MEDS: Famotidine 20 MG TAB PO SCH ×2 (07:35→16:31)
[2018-03-08] MEDS: Atorvastatin Calcium 20 MG TAB PO SCH (08:53)
[2018-03-08] MEDS: Aspirin 81 mg Enteric Coated Tablet PO SCH (08:54)
[2018-03-08] MEDS: Carbidopa/Levodopa 10-100 mg Tablet PO SCH ×3 (08:54→21:03)
[2018-03-08] MEDS: Digoxin 0.125 MG TAB PO SCH (08:54)
[2018-03-08] MEDS: Dicyclomine 20 MG TAB PO SCH ×3 (08:54→21:03)
[2018-03-08] MEDS: Citalopram 20 MG TAB PO SCH (08:54)
[2018-03-08] MEDS: TROSPIUM 20 MG TABLET PO SCH (09:43)
--- NOTE | 2018-03-08 13:35 | PRG ---
DATE OF SERVICE: 03/08/2018 SUBJECTIVE: Ms. Sterling is doing well. Denies any complaints, resting comfortably. She does not want to take her overactive bladder medication. She is only on trospium. She was supposed to be on VESI care, it is probably a pharmacy substitution. Will discontinue it and see how she does. OBJECTIVE: VITAL SIGNS: She is afebrile, heart rate is 97, respirations 20, oxygen saturation 97% on room air, blood pressure 106/55. CARDIOVASCULAR: S1, S2 plus. RESPIRATORY: Normal vesicular breath sounds. ABDOMEN: Soft, obese, nontender, bowel sounds heard in all quadrants. EXTREMITIES: Without cyanosis or clubbing. CENTRAL NERVOUS SYSTEM: Improving deconditioning. IMPRESSION: 1. Resolved acute diastolic congestive heart failure. 2. Hypertension, well controlled. 3. Dyslipidemia. 4. Gastroesophageal reflux disease. 5. Improving deconditioning. 6. Resolved hypoxemia. 7. Resolved pneumonia due to metapneumovirus. PLAN: 1. Continue current medications. 2. Nutritional support. 3. DVT and stress ulcer prophylaxis. 4. Decubitus precautions. 5. Heart healthy diet. 6. Monitor blood pressure. 7. Order for a wheeled walker has been written. They are to arrange it. 8. Discussed with therapy and anticipate discharge date, I am thinking it is probably going to be . No family at bedside.
[2018-03-09] MEDS: Levothyroxine Sodium 50 MCG TAB PO SCH (06:13)
[2018-03-09 06:38] VITALS: BMI 29.9
[2018-03-09] MEDS: Famotidine 20 MG TAB PO SCH ×2 (07:49→16:29)
[2018-03-09] MEDS: Atorvastatin Calcium 20 MG TAB PO SCH (09:22)
[2018-03-09] MEDS: Digoxin 0.125 MG TAB PO SCH (09:22)
[2018-03-09] MEDS: Carbidopa/Levodopa 10-100 mg Tablet PO SCH ×2 (09:22→15:55)
[2018-03-09] MEDS: Dicyclomine 20 MG TAB PO SCH ×2 (09:23→15:55)
[2018-03-09] MEDS: Aspirin 81 mg Enteric Coated Tablet PO SCH (09:23)
[2018-03-09] MEDS: Citalopram 20 MG TAB PO SCH (09:23)
[2018-03-09] MEDS: Acetaminophen 500 MG TAB PO PRN (10:24)
[2018-03-09 12:44] VITALS: BP 83/52
--- NOTE | 2018-03-09 15:30 | DIS ---
DATE OF ADMISSION: 02/18/2018 DATE OF DISCHARGE: 03/09/2018 PRINCIPAL DIAGNOSES: 1. Acute on chronic diastolic congestive heart failure, resolved. 2. Hypoxemia, on exertion requiring home oxygen. 3. Resolved community-acquired pneumonia with metapneumovirus. 4. Coronary artery disease with recent non-ST elevation myocardial infarction. 5. Hypertension, well controlled. 6. Dyslipidemia. 7. Gastroesophageal reflux disease. 8. Hypothyroidism. 9. Irritable bowel syndrome. 10. Vitamin B12 deficiency. 11. Degenerative joint disease. 12. History of atrial fibrillation. 13. Chronic diastolic congestive heart failure. 14. Improved deconditioning. 15. Anxiety and depression. COMPLICATIONS: None. ADVERSE REACTIONS: None. PROCEDURES: None. CONSULTATIONS: Physical therapy and occupational therapy. HOSPITAL COURSE: The patient was admitted on 02/18/2018 as a transfer from [facility] w here she was admitted with acute respiratory failure due to community-acquired pneumonia and had an e pisode of acute diastolic congestive heart failure. She was discharged here on p.o. Lasix and oxygen . She was slowly weaned off oxygen which she did not need address but at any exertion, her oxygen le vels dropped and they have deemed her to need 2 liters of oxygen with any activity. This is being ar ranged. She also needs a walker for which orders have been written for a rolling walker adjustable a nd case management is working on that as well. She had episodes of orthostasis and her Lasix was dis continued and then she had to have AVIS hose placed and since then she has been doing much better. Chris kwon did have an episode of oral ulcers which are resolved and she was treated symptomatically with visc ous Xylocaine. She also did not want to take her medications for overactive bladder. She was on VES Icare at home and here she was on trospium, which was discontinued. She is back in sinus rhythm. lindy deemed her stable for discharge with the walker and oxygen which is being arranged. DISCHARGE MEDICATIONS: 1. Aspirin 81 mg daily. 2. Lipitor 20 mg daily. 3. Sinemet 10/100 one tablet t.i.d. 4. Celexa 20 mg daily. 5. Digoxin 0.125 mg daily. 6. Levoxyl 50 mcg daily in the morning. 7. Bentyl 10 mg t.i.d. 8. Lisinopril 2.5 mg daily. 9. Ranitidine 150 mg b.i.d. 10. She also takes diazepam at home as needed. ACTIVITY: As tolerated, heart healthy diet. Continue wearing AVIS hose during the daytime, remove it at night. She is to call us with any questions or concerns. On the day of discharge, she is afebri le. Heart rate is 88, respirations are 18, oxygen saturation 94% when resting. With activity, her blood pressure dropped to 103/54 and her oxygen saturation dropped to 83. CARDIOVASCULAR SYSTEM: S1, S2 plus. RESPIRATORY SYSTEM: Normal vesicular breath sounds. Decreased air into the bases. ABDOMEN: Soft, obese, nontender. Bowel sounds heard in all quadrants. EXTREMITIES: Without cyanosis or clubbing. Trace edema. CENTRAL NERVOUS SYSTEM: Improving deconditioning. She will follow up in my office in 7-10 days. She is to call me with any questions or concerns. No family at the bedside. Her daughter is supposed to come here to pick her up at 330. Total time spent on this discharge including discussing with case management, arrange her DME were 35 minutes.
[2018-03-09 18:36] VITALS: TEMP 98.2
== END 2018-03-09 18:30 | disposition home or self-care (01) | DRG 280 ==
LOC: NAV ACUTE 17:25
PROVIDERS: ADMIT Internal Medicine; ATTEND Internal Medicine
DX: I11.0 Hypertensive heart disease with heart failure (principal); I21.A1 Myocardial infarction type 2; J12.3 Human metapneumovirus pneumonia; I50.33 Acute on chronic diastolic (congestive) heart failure; I25.10 Atherosclerotic heart disease of native coronary artery without angina pectoris; E78.5 Hyperlipidemia, unspecified; K21.9 Gastro-esophageal reflux disease without esophagitis; E03.9 Hypothyroidism, unspecified; M19.90 Unspecified osteoarthritis, unspecified site; F41.9 Anxiety disorder, unspecified; F32.9 Major depressive disorder, single episode, unspecified; D64.9 Anemia, unspecified; G20 Parkinson's disease; K58.9 Irritable bowel syndrome, unspecified; I95.1 Orthostatic hypotension; I48.0 Paroxysmal atrial fibrillation; Z87.01 Personal history of pneumonia (recurrent); E53.8 Deficiency of other specified B group vitamins; R09.02 Hypoxemia
CPT/HCPCS: 36415; 80048; 80053; 83880; 85025; Q0162

== ENCOUNTER 2019-05-30 15:05 | Outpatient (CLI) | payer MEDICARE, MEDICAID ==
--- NOTE | 2019-05-30 16:13 | RAD ---
THORACIC SPINE 4 VIEWS: Date: 05/30/19 INDICATION: Thoracic back pain. Comparison made to lateral chest film dated 02/11/18. FINDINGS: Degenerative changes. Osteopenia. Mild anterior wedging of mid thoracic vertebra, most prominent at T 7 and T8, appears stable in the AP projection. T7 is poorly delineated in the lateral view and I tre ot exclude some increased wedging at this vertebra. IMPRESSION: Degenerative changes of thoracic spine with osteopenia. Question increased wedging at T7 since prior exam. Consider further evaluation with MRI thoracic spine for confirmation of new compression injury. POS: BRITTA
== END 2019-05-30 15:06 | disposition home or self-care (01) ==
LOC: NAV RAD 15:05
PROVIDERS: ATTEND Internal Medicine
DX: M54.6 Pain in thoracic spine (principal); I11.0 Hypertensive heart disease with heart failure; I50.9 Heart failure, unspecified; M47.814 Spondylosis without myelopathy or radiculopathy, thoracic region; M85.88 Other specified disorders of bone density and structure, other site
CPT/HCPCS: 72072

== ENCOUNTER 2020-08-23 10:06 | Emergency (ER) | payer MEDICARE, MEDICAID ==
--- NOTE | 2020-08-23 10:38 | RAD ---
XR Chest 1 View Portable History: Difficulty breathing Comparison: Chest radiograph January 2018 Findings: Pulmonary arteries are dilated. Heart size is enlarged. Mild pulmonary edema. Moderate effu sions. No pneumothorax. Impression: Decompensated congestive heart failure.
[2020-08-23] MEDS ORDERED: Furosemide 40 MG/4 ML VIAL ONE (10:55)
[2020-08-23 11:07] LABS: Hemoglobin 15.1 g/dL (12.0-16.0); MDiff Complete? YES; Mean Corpuscular HGB CONC 29.3 g/dL (32.0-36.0); Mean Corpuscular Hemoglobin 29.7 pg (27.0-31.0); Mean Platelet Volume 8.3 fL (7.4-10.4); Platelet Count 294 thou/uL (130-400); RBC Distribution Width 14.1 % (11.5-14.5); Red Blood Cell (RBC) Count 5.09 mill/uL (4.20-5.40); White Blood Cell (WBC) Count 9.7 thou/uL (4.8-10.8)
[2020-08-23 11:08] LABS: Anisocytosis SLIGHT = 6-15 cells (100X) (0-5/hpf); Lymphocytes 10 % (21-51); Macrocytosis SLIGHT = 6-15 cells (100X) (0-5/hpf); Monocytes 10 % (0-10); Neutrophil 80 % (42-75); Platelet Morphology Comment Appears Adequate
[2020-08-23 11:21] LABS: ALT (SGPT) 11 U/L (8-55); AST (SGOT) 12 U/L (5-34); Albumin 3.6 g/dL (3.4-4.8); Alkaline Phosphatase 78 U/L (40-110); Anion Gap 18 mmol/L (10-20); BUN (Urea Nitrogen) 33 mg/dL (9.8-20.1); Bilirubin, Total 0.7 mg/dL (0.2-1.2); CK (CPK) 29 U/L (29-168); Calc. Creatinine Clearance 0 mL/min (70-130); Calcium 8.6 mg/dL (7.8-10.44); Carbon Dioxide 22 mmol/L (23-31); Chloride 107 mmol/L (98-107); Estimated GFR-MDRD 56; Globulin 2.9 g/dL (2.4-3.5); Glucose 102 mg/dL (83-110); Potassium 4.8 mmol/L (3.5-5.1); Protein, Total 6.5 g/dL (6.0-8.3); Sodium 142 mmol/L (136-145)
== END 2020-08-23 14:19 | disposition short-term general hospital (02) ==
LOC: NAV ERS 10:06
DX: I11.0 Hypertensive heart disease with heart failure (principal); I50.9 Heart failure, unspecified; I35.1 Nonrheumatic aortic (valve) insufficiency; E03.9 Hypothyroidism, unspecified; K21.9 Gastro-esophageal reflux disease without esophagitis; E78.5 Hyperlipidemia, unspecified; M19.90 Unspecified osteoarthritis, unspecified site; F41.9 Anxiety disorder, unspecified; F32.9 Major depressive disorder, single episode, unspecified; Z79.899 Other long term (current) drug therapy; Z79.82 Long term (current) use of aspirin
CPT/HCPCS: 71045; 80053; 82550; 83880; 84484; 85025; 93005; 96374; J1940

== ENCOUNTER 2020-08-31 18:18 | Inpatient (IN) | payer MEDICARE, MEDICAID ==
[2020-08-31] MEDS ORDERED: Polyethylene Glycol OPTH DROP 15 ML BOT EA EYE PRN (20:42)
[2020-08-31] MEDS: Famotidine 20 MG TAB PO SCH (21:27)
[2020-08-31] MEDS: Carbidopa/Levodopa 10-100 mg Tablet PO SCH (21:27)
[2020-09-01] MEDS ORDERED: Levothyroxine Sodium 50 MCG TAB PO SCH (06:00)
[2020-09-01] MEDS: Acetaminophen 325 MG TAB PO PRN (08:27)
[2020-09-01] MEDS: Carbidopa/Levodopa 10-100 mg Tablet PO SCH ×3 (08:28→21:08)
[2020-09-01] MEDS: Famotidine 20 MG TAB PO SCH ×2 (08:28→21:07)
[2020-09-01] MEDS: Lisinopril 5 MG TAB PO SCH (08:28)
[2020-09-01] MEDS: Aspirin 81 mg Enteric Coated Tablet PO SCH (08:28)
[2020-09-01] MEDS ORDERED: Polyethylene Glycol OPTH DROP 15 ML BOT EA EYE PRN (08:32)
[2020-09-01] MEDS ORDERED: Dicyclomine 10 MG CAP PO SCH (09:00)
[2020-09-01] MEDS ORDERED: FLU VACC QS2020-21(65YR UP)/PF 240 MCG/0.7 ML SYRINGE IM ONE (09:00)
[2020-09-01] MEDS ORDERED: Digoxin 0.125 MG TAB PO SCH (09:00)
[2020-09-01] MEDS ORDERED: Citalopram 20 MG TAB PO SCH (09:00)
[2020-09-01] MEDS ORDERED: Atorvastatin Calcium 20 MG TAB PO SCH (09:00)
[2020-09-01] MEDS ORDERED: Furosemide 40 MG TAB PO SCH (09:00)
[2020-09-01] MEDS: Furosemide 20 MG TAB PO SCH (13:10)
--- NOTE | 2020-09-01 20:08 | HP ---
The patient of Dr. Naomi Flores. HISTORY OF PRESENT ILLNESS: The patient is a very pleasant 89-year-old white female with long history of Parkinson's disease, hypothyroidism, and increasing shortness of breath with significant edema. She had tough valve and heart, subsequently was found to have nvpkxfao-pv-obfubi aortic stenosis. She apparently has refused replacement surgery. She has developed diastolic heart failure with ejection fraction of 55% to 60% and pulmonary hypertension. She was diuresed in the hospital there with some improvement in her edema, but with no improvement in her dyspnea on exertion, she did require BiPAP initially, but has been weaned off that. PAST MEDICAL HISTORY: Remarkable only for hypothyroidism, anxiety, depression, and hyperlipidemia. PAST SURGICAL HISTORY: Positive for appendectomy, hysterectomy, total knee and hip replacement. FAMILY MEDICAL HISTORY: Noncontributory. SOCIAL HISTORY: She is a nonsmoker. She lives with her daughter. She ambulates with a wheelchair. REVIEW OF SYSTEMS: HEENT: She denies any headaches or dizziness. GENERAL: She is somewhat a poor historian. CHEST: She denies chest pain or palpitations. She does have 1 to 2 pillow orthopnea and has dyspnea on exertion, which is recently increased. PULMONARY: She denies cough, sputum production, pneumonia, asthma, or tuberculosis. GASTROINTESTINAL: She denies nausea, vomiting, diarrhea, constipation, or abdominal pain. GENITOURINARY: Denies dysuria, hematuria, or nocturia. MUSCULOSKELETAL: Has diffuse generalized weakness. PHYSICAL EXAMINATION: GENERAL: The patient is an elderly white female, lying in bed, awake and alert, no distress, but on 2 L of oxygen. HEENT: Pupils are equal, round, and reactive to light and accommodation. Sclerae are anicteric. Conjunctivae are pale. well hydrated NECK: Supple. JVP's elevated 1 cm at 45 degrees. LUNGS: However, clear. CARDIAC: Shows regular rhythm, S4. PMI in the fifth intercostal space, 1 cm in the left midclavicular line. ABDOMEN: Soft and nontender with no masses or organomegaly. SKIN/EXTREMITIES: Trace to 1+ edema. No clubbing or cyanosis. NEUROLOGICAL: Intact. LABORATORY DATA: Done at the previous hospital showed her to have white count 7200, hematocrit 40, and hemoglobin 12. Sodium 138, potassium 4.5, chloride 102, bicarb 23, BUN 35, and creatinine 0.93. BNP is 1613. 1.6. Echocardiogram showing ejection fraction of 60%, mild diastolic dysfunction. Monitor severe aortic stenosis with calcified valve, dilated right chambers with severe pulmonary hypertension with ventricular systolic pressure of 75. ASSESSMENT: An 89-year-old white female with history of hcmlstjp-oz-iypwbt aortic stenosis, diastolic heart failure and significant pulmonary hypertension, who was presented with significant edema and fluid overload, which has been relieved with furosemide, but who is still having significant dyspnea on minimal exertion, most likely due to her pulmonary hypertension. She has been admitted to [facility] to start PT and monitor closely by her primary care physician, Dr. Kelly, who will be back tomorrow. She will continue on her digoxin 0.125 daily, furosemide 40 mg twice daily, lisinopril 2.5 mg daily and will be monitored closely for improvement in her shortness of breath. She will also be continued on atorvastatin for hyperlipidemia, levothyroxine for hypothyroidism, and carbidopa-levodopa for longstanding history of Parkinson's disease. Her prognosis is somewhat guarded. The family understands this. Code status is not determined at present, and has been found to be [id number], cardiac resuscitation only. Job ID: [id number]
[2020-09-01] MEDS: Atorvastatin Calcium 20 MG TAB PO SCH (21:07)
[2020-09-02] MEDS: Levothyroxine Sodium 50 MCG TAB PO SCH (06:01)
[2020-09-02] MEDS: Furosemide 20 MG TAB PO SCH ×2 (08:20→14:24)
[2020-09-02] MEDS: Famotidine 20 MG TAB PO SCH ×2 (08:20→20:22)
[2020-09-02] MEDS: Carbidopa/Levodopa 10-100 mg Tablet PO SCH ×3 (08:21→20:22)
[2020-09-02] MEDS: Dicyclomine 10 MG CAP PO SCH (08:21)
[2020-09-02] MEDS: Aspirin 81 mg Enteric Coated Tablet PO SCH (08:21)
[2020-09-02] MEDS: Digoxin 0.125 MG TAB PO SCH (08:21)
[2020-09-02] MEDS: Citalopram 20 MG TAB PO SCH (08:21)
[2020-09-02] MEDS: Lisinopril 5 MG TAB PO SCH ×2 (08:22)
[2020-09-02] MEDS ORDERED: Aspirin 81 mg Enteric Coated Tablet PO SCH (09:00)
--- NOTE | 2020-09-02 19:05 | PRG ---
DATE OF SERVICE: 09/02/2020 SUBJECTIVE: Patient is resting in bed with no symptoms at rest, but has dyspnea on minimal exertion, even taking a shower, moving in the bed. She states she requires oxygen. Still has to breathe through her mouth at times even with a 2 L cannula. She has been working on incentive spirometry. OBJECTIVE: VITAL SIGNS: Shows her temperature is 97.4, pulse 77, respirations 18, O2 sats 96% on 4 L, blood pressure is 123/72. LUNGS: Show decreased breath sounds at bases, but no rales or rhonchi. CARDIAC EXAMINATION: Shows regular rhythm, 2/6 systolic ejection murmur heard at the right sternal border. SKIN/EXTREMITIES: Show trace edema. ASSESSMENT: 1. Pulmonary hypertension, fairly severe, with dyspnea on minimal exertion. 2. Diastolic heart failure, jgtoyeux-pu-ipdqvy aortic stenosis. 3. Fluid overload, now resolved on furosemide 40 twice daily, digoxin 0.125 daily, lisinopril 2.5 daily. 4. Parkinson's disease, stable on carbidopa and levodopa. PLAN: 1. CBC and comprehensive metabolic profile in the a.m. 2. Continue PT/OT. 3. Dr. Kelly back tonight. 4. Patient is not to be intubated, cardiac resuscitation only. 5. Patient's family needs to be assessed for situation if the patient does not appear to understand anything. Job ID: [id number]
--- NOTE | 2020-09-02 19:49 | PRG ---
DATE OF SERVICE: SUBJECTIVE: The patient feels well at rest. No dyspnea at rest, but has not been ambulating since admission. She is denying any chest pain, palpitations, dizziness, or syncope. OBJECTIVE: VITAL SIGNS: Show her blood pressure is 107/70, temperature is 96, pulse 79, respirations 19, and O2 sats 93% on 4 L. LUNGS: Show no rales, rhonchi, or wheezes. JVPs are elevated at 1cm at 45 degrees. CARDIAC: Showed regular rhythm. PMI in the fifth intercostal space midclavicular line. There is a 2/6 ejection murmur heard at the right sternal border second intercostal space. ASSESSMENT: 1. Pulmonary hypertension, stable but significant. 2. Diastolic heart failure, stable, symptoms at rest. 3. Moderate to severe aortic stenosis. 4. Deconditioning. 5. Hypothyroidism. 6. Parkinson's disease. PLAN: 1. Start PT/OT on Thursday. 2. Continue furosemide twice daily and lisinopril one-half daily. Monitor closely for hypotension or any significant arrhythmias. Job ID: [id number]
[2020-09-02] MEDS: Atorvastatin Calcium 20 MG TAB PO SCH (20:22)
[2020-09-03] MEDS: Levothyroxine Sodium 50 MCG TAB PO SCH (05:23)
[2020-09-03 05:29] LABS: #Basophils 0.1 thou/uL (0.0-0.2); #Eosinphils 0.2 thou/uL (0.0-0.7); #Lymphocytes 0.7 thou/uL (1.20-3.40); #Monocytes 0.6 thou/uL (0.11-0.59); #Neutrophils 5.8 thou/uL (1.40-6.50); %Basophils 1.3 % (0.0-1.0); %Eosinophils 3.2 % (0.0-10.0); %Lymphocytes 9.7 % (21.0-51.0); %Monocytes 7.8 % (0.0-10.0); Hemoglobin 12.7 g/dL (12.0-16.0); Mean Corpuscular HGB CONC 29.6 g/dL (32.0-36.0); Mean Corpuscular Hemoglobin 29.2 pg (27.0-31.0); Mean Corpuscular Volume 98.6 fL (78.0-98.0); Mean Platelet Volume 8.8 fL (7.4-10.4); Platelet Count 242 thou/uL (130-400); Red Blood Cell (RBC) Count 4.37 mill/uL (4.20-5.40); White Blood Cell (WBC) Count 7.5 thou/uL (4.8-10.8)
[2020-09-03 05:46] LABS: ALT (SGPT) 9 U/L (8-55); AST (SGOT) 21 U/L (5-34); Alkaline Phosphatase 63 U/L (40-110); Anion Gap 13 mmol/L (10-20); BUN (Urea Nitrogen) 27 mg/dL (9.8-20.1); Bilirubin, Total 0.6 mg/dL (0.2-1.2); Calc. Creatinine Clearance 57 mL/min (70-130); Calcium 8.5 mg/dL (7.8-10.44); Carbon Dioxide 36 mmol/L (23-31); Chloride 93 mmol/L (98-107); Estimated GFR-MDRD 53; Globulin 3.1 g/dL (2.4-3.5); Glucose 87 mg/dL (83-110); Potassium 4.1 mmol/L (3.5-5.1); Protein, Total 6.1 g/dL (6.0-8.3); Sodium 138 mmol/L (136-145)
--- NOTE | 2020-09-03 07:48 | RAD ---
RADIOGRAPH CHEST 1 VIEW: DATE: 09/03/2020 TIME: 6:37 AM HISTORY: 82-year-old female with congestive heart failure and wheezing COMPARISON: 08/23/2020 FINDINGS: Cardiomegaly. Bilateral interstitial densities which probably represent pulmonary interstitial edema, slightly greater at patchy regions in right upper lung zone and left midlung zone. Consolidation of left lower lobe is worse than before. Bilateral pleural effusions remain. No pneumothorax. IMPRESSION: 1. Congestive heart failure: Cardiomegaly, pulmonary edema, and pleural effusions. 2. Worsening of left lower lobe consolidation: Atelectasis versus pneumonia.
[2020-09-03] MEDS: Dicyclomine 10 MG CAP PO SCH (08:08)
[2020-09-03] MEDS: Carbidopa/Levodopa 10-100 mg Tablet PO SCH ×3 (08:08→21:15)
[2020-09-03] MEDS: Lisinopril 5 MG TAB PO SCH (08:09)
[2020-09-03] MEDS: Aspirin 81 mg Enteric Coated Tablet PO SCH (08:09)
[2020-09-03] MEDS: Furosemide 20 MG TAB PO SCH (08:09)
[2020-09-03] MEDS: Famotidine 20 MG TAB PO SCH ×2 (08:09→21:15)
[2020-09-03] MEDS: Citalopram 20 MG TAB PO SCH (08:09)
[2020-09-03] MEDS: Digoxin 0.125 MG TAB PO SCH (08:10)
[2020-09-03] MEDS: Albuterol Sulfate 2.5 mg/3 ml Neb NEB PRN ×3 (13:03→23:58)
[2020-09-03] MEDS: Furosemide 40 MG TAB PO SCH (13:04)
--- NOTE | 2020-09-03 13:22 | PRG ---
DATE OF SERVICE: 09/03/2020 SUBJECTIVE: Ms. Sterling is doing well except for some coughing spell this morning. Apparently, nursing noticed wheezing. She does have history of heart failure and pulmonary hypertension. Her BNP was elevated. Her renal functions were normal. I did order a chest x-ray and gave her a one time breathing treatment, which apparently helped her a lot. Reviewed the chest x-ray and there is a question of atelectasis versus infiltrate, but she clinically does not show any signs of pneumonia. Plan is to reinforce her using her incentive spirometry every 2 hours and ordered the breathing treatment q.4 as needed. I may add an Acapella valve to it if she is not doing well with incentive spirometry. No family at bedside. OBJECTIVE: VITAL SIGNS: She is afebrile. Heart rate 73, respirations 18, oxygen saturation 93% on 4 L, blood pressure was 128/65. CARDIOVASCULAR: S1 and S2 plus. RESPIRATORY: Normal vesicular breath sounds with decreased air entry in the bases. Scattered crackles. ABDOMEN: Soft, nontender. Obese. Bowel sounds heard in all quadrants. EXTREMITIES: Without cyanosis or clubbing. Trace edema. CENTRAL NERVOUS SYSTEM: She does have some rigidity and Parkinsonian type tremors. Generalized weakness, otherwise nonfocal. LABORATORY DATA: Laboratory values done this morning shows a sodium of 138, potassium 4.1, BUN and creatinine is 27 and 0.99. BNP yesterday was 1327. White count is 7.5, hemoglobin and hematocrit are 12.7 and 43.1. IMPRESSION: 1. Resolving acute on chronic diastolic congestive heart failure. 2. Pulmonary hypertension. 3. Whtawmet-sm-ajwtbe aortic stenosis. 4. Possible Parkinson's. 5. Hypothyroidism. 6. Dyslipidemia. 7. Anxiety and depression. 8. Deconditioning. PLAN: 1. Continue current medications. 2. Heart healthy diet. 3. Monitor blood pressure and adjust medications as needed. 4. Monitor respiratory status and breathing treatments as needed. 5. Continue Lasix. 6. DVT prophylaxis with PlexiPulses. 7. Decubitus precautions. 8. Stress ulcer prophylaxis. 9. Continue to titrate oxygen acute on chronic hypoxemic respiratory failure. 10. Daily weights. 11. PT/OT. 12. Routine laboratory values. 13. Discussed with the patient in detail. All questions answered. Job ID: [id number]
[2020-09-03] MEDS: Atorvastatin Calcium 20 MG TAB PO SCH (21:15)
[2020-09-03] MEDS: Enoxaparin Sodium 40 MG/0.4 ML SYRINGE SC SCH (21:15)
[2020-09-04] MEDS: Albuterol Sulfate 2.5 mg/3 ml Neb NEB PRN ×2 (05:17→14:44)
[2020-09-04] MEDS: Levothyroxine Sodium 50 MCG TAB PO SCH (05:18)
[2020-09-04] MEDS: Citalopram 20 MG TAB PO SCH (09:41)
[2020-09-04] MEDS: Furosemide 40 MG TAB PO SCH ×2 (09:41→14:29)
[2020-09-04] MEDS: Carbidopa/Levodopa 10-100 mg Tablet PO SCH ×3 (09:41→21:06)
[2020-09-04] MEDS: Dicyclomine 10 MG CAP PO SCH (09:42)
[2020-09-04] MEDS: Digoxin 0.125 MG TAB PO SCH (09:42)
[2020-09-04] MEDS: Lisinopril 5 MG TAB PO SCH (09:42)
[2020-09-04] MEDS: Famotidine 20 MG TAB PO SCH ×2 (09:42→21:06)
[2020-09-04] MEDS: Aspirin 81 mg Enteric Coated Tablet PO SCH (09:48)
--- NOTE | 2020-09-04 13:42 | PRG ---
DATE OF SERVICE: 09/04/2020 SUBJECTIVE: Ms. Sterling is feeling better, but still has this dry cough. No fever or chills. Also noticing some soreness to the right foot, mainly in the ankle area. No trauma. OBJECTIVE: VITAL SIGNS: She is afebrile. Heart rate 86, respirations 20, oxygen saturation 92%, blood pressure 122/73. CARDIOVASCULAR: S1 and S2 plus. RESPIRATORY: Normal vesicular breath sounds with scattered crackles and occasional wheezing. ABDOMEN: Soft and nontender. Bowel sounds heard in all quadrants. EXTREMITIES: Without cyanosis or clubbing. Trace edema. CENTRAL NERVOUS SYSTEM: Improving deconditioning. IMPRESSION: 1. Possible reactive airway disease/asthmatic bronchitis. 2. Resolving acute on chronic diastolic congestive heart failure. 3. Pulmonary hypertension. 4. Xffwomxp-qk-haevqx aortic stenosis. 5. Possible Parkinson's. 6. Hypothyroidism. 7. Dyslipidemia. 8. Anxiety and depression. 9. Deconditioning. PLAN: 1. Trial of steroids, prednisone 20 mg b.i.d. 2. Add Tessalon Perles 200 mg t.i.d. for cough. 3. Continue breathing treatments q.4 hours as needed. 4. Continue incentive spirometry. 5. Titrate oxygen as tolerated. 6. DVT prophylaxis with PlexiPulses. 7. Decubitus precautions. 8. Stress ulcer prophylaxis. 9. Continue therapy. 10. Routine laboratory values. 11. Discussed with the patient in detail. All questions answered. Job ID: [id number]
[2020-09-04] MEDS: Benzonatate 100 MG CAP PO PRN ×2 (14:31→21:07)
[2020-09-04] MEDS: predniSONE 20 MG TAB PO SCH (17:56)
[2020-09-04] MEDS: Enoxaparin Sodium 40 MG/0.4 ML SYRINGE SC SCH (21:05)
[2020-09-04] MEDS: Atorvastatin Calcium 20 MG TAB PO SCH (21:06)
[2020-09-05] MEDS: Levothyroxine Sodium 50 MCG TAB PO SCH (05:56)
[2020-09-05] MEDS: Albuterol Sulfate 2.5 mg/3 ml Neb NEB PRN ×3 (05:57→20:43)
[2020-09-05] MEDS: predniSONE 20 MG TAB PO SCH ×2 (07:58→15:47)
[2020-09-05] MEDS: Famotidine 20 MG TAB PO SCH ×2 (07:58→20:44)
[2020-09-05] MEDS: Aspirin 81 mg Enteric Coated Tablet PO SCH (07:58)
[2020-09-05] MEDS: Acetaminophen 325 MG TAB PO PRN (07:58)
[2020-09-05] MEDS: Benzonatate 100 MG CAP PO PRN ×2 (07:58→20:44)
[2020-09-05] MEDS: Furosemide 40 MG TAB PO SCH (07:59)
[2020-09-05] MEDS: Digoxin 0.125 MG TAB PO SCH (07:59)
[2020-09-05] MEDS: Citalopram 20 MG TAB PO SCH (07:59)
[2020-09-05] MEDS: Carbidopa/Levodopa 10-100 mg Tablet PO SCH ×3 (07:59→20:44)
[2020-09-05] MEDS: Dicyclomine 10 MG CAP PO SCH (07:59)
[2020-09-05] MEDS: Lisinopril 5 MG TAB PO SCH (08:00)
--- NOTE | 2020-09-05 13:44 | PRG ---
DATE OF SERVICE: 09/05/2020 SUBJECTIVE: Ms. Sterling is doing well. She apparently had an episode of shortness of breath, but this has since resolved. She is trying to be compliant with her incentive spirometry. She did have episodes of systolic blood pressures in the 100s, and given her rvtaewpu-dw-ryodag aortic stenosis, I would prefer to keep her systolic blood pressure around 120. I did give parameters for the same for her blood pressure medicine, I am also going to reduce her Lasix to once daily. Because of the persistent cough, repeat COVID test was done as we have had a couple of cases here in the hospital, but I really do not suspect COVID at this time. Her lungs sound a lot better since she was started on the steroids yesterday. OBJECTIVE: VITAL SIGNS: She is afebrile. Heart rate 73, respirations 18, oxygen saturation 95%, blood pressure 113/72. CARDIOVASCULAR SYSTEM: S1 and S2 plus. RESPIRATORY SYSTEM: Normal vesicular breath sounds with decreased air entry in the bases. ABDOMEN: Soft and nontender. Bowel sounds heard in all quadrants. EXTREMITIES: Without cyanosis or clubbing. Trace edema. CENTRAL NERVOUS SYSTEM: Generalized weakness. IMPRESSION: 1. Resolving acute on chronic diastolic congestive heart failure. 2. Pulmonary hypertension. 3. Ysstxlft-ih-rzhryu aortic stenosis. 4. Hypothyroidism. 5. Dyslipidemia. 6. Anxiety and depression. 7. Deconditioning. 8. Hypoxemic respiratory failure likely, acute. 9. Deconditioning. PLAN: 1. Continue current medications including steroids. 2. Continue breathing treatments. 3. Titrate oxygen. 4. Monitor respiratory status. 5. Continue respiratory droplet precautions and await COVID-19 test. 6. Continue therapy. 7. Parameters given for blood pressure medications. 8. Reduce Lasix to once daily. 9. Routine laboratory values. 10. Discussed with the patient in detail. All questions answered. Job ID: [id number]
[2020-09-05] MEDS: Atorvastatin Calcium 20 MG TAB PO SCH (20:44)
[2020-09-05] MEDS: Enoxaparin Sodium 40 MG/0.4 ML SYRINGE SC SCH (20:44)
[2020-09-06] MEDS: Levothyroxine Sodium 50 MCG TAB PO SCH (06:19)
[2020-09-06] MEDS: Albuterol Sulfate 2.5 mg/3 ml Neb NEB PRN ×2 (06:19→13:25)
[2020-09-06] MEDS: Benzonatate 100 MG CAP PO PRN ×3 (06:19→20:25)
[2020-09-06] MEDS: Lisinopril 5 MG TAB PO SCH (08:16)
[2020-09-06] MEDS: Furosemide 40 MG TAB PO SCH (08:47)
[2020-09-06] MEDS: Dicyclomine 10 MG CAP PO SCH (08:47)
[2020-09-06] MEDS: Citalopram 20 MG TAB PO SCH (08:47)
[2020-09-06] MEDS: Digoxin 0.125 MG TAB PO SCH (08:47)
[2020-09-06] MEDS: Famotidine 20 MG TAB PO SCH ×2 (08:47→20:25)
[2020-09-06] MEDS: Aspirin 81 mg Enteric Coated Tablet PO SCH (08:47)
[2020-09-06] MEDS: Carbidopa/Levodopa 10-100 mg Tablet PO SCH ×3 (08:47→20:25)
[2020-09-06] MEDS: predniSONE 20 MG TAB PO SCH ×2 (08:48→15:42)
[2020-09-06 12:09] LABS: SARS-CoV-2 MS2 Positive; SARS-CoV-2 N Gene Negative; SARS-CoV-2 S Gene Negative; SARS-CoV-2 by NAA Not Detected (NotDetected); SARS-CoV-2 orf1ab Negative
--- NOTE | 2020-09-06 13:01 | PRG ---
DATE OF SERVICE: 09/06/2020 SUBJECTIVE: Ms. Sterling is doing well. Denies any complaints. Her COVID-19 test was negative. Her breathing is improving. She is being more compliant with her incentive spirometry. OBJECTIVE: VITAL SIGNS: She is afebrile, heart rate 88, respirations 18, oxygen saturation 93% on 4 L, and blood pressure 109/62. CARDIOVASCULAR SYSTEM: S1 and S2 plus. RESPIRATORY SYSTEM: Normal vesicular breath sounds. ABDOMEN: Soft, obese, and nontender. Bowel sounds heard in all quadrants. EXTREMITIES: Without cyanosis or clubbing. Trace edema. CENTRAL NERVOUS SYSTEM: Improving deconditioning. IMPRESSION: 1. Resolving acute on chronic diastolic congestive heart failure. 2. Pulmonary hypertension. 3. Possible asthmatic bronchitis. 4. Parkinson's disease. 5. Morbid obesity. 6. Depression and anxiety. 7. Dyslipidemia. 8. Deconditioning. 9. Hypothyroidism. PLAN: 1. Continue current medications. 2. Heart-healthy diet. 3. Monitor respiratory status. 4. Titrate oxygen as tolerated. 5. Physical therapy. 6. DVT prophylaxis with Lovenox. 7. Decubitus precautions. 8. Stress ulcer prophylaxis. 9. Recheck CBC and BMP in the morning. Job ID: [id number]
[2020-09-06] MEDS: Atorvastatin Calcium 20 MG TAB PO SCH (20:25)
[2020-09-06] MEDS: Enoxaparin Sodium 40 MG/0.4 ML SYRINGE SC SCH (20:26)
[2020-09-07] MEDS: Levothyroxine Sodium 50 MCG TAB PO SCH (05:20)
[2020-09-07 05:24] LABS: #Basophils 0.1 thou/uL (0.0-0.2); #Lymphocytes 0.6 thou/uL (1.20-3.40); #Monocytes 0.6 thou/uL (0.11-0.59); %Basophils 0.8 % (0.0-1.0); %Lymphocytes 8.7 % (21.0-51.0); %Monocytes 7.6 % (0.0-10.0); %Neutrophils 82.8 % (42.0-75.0); Hemoglobin 11.8 g/dL (12.0-16.0); Mean Corpuscular HGB CONC 29.8 g/dL (32.0-36.0); Mean Corpuscular Hemoglobin 29.3 pg (27.0-31.0); Mean Corpuscular Volume 98.5 fL (78.0-98.0); Mean Platelet Volume 8.8 fL (7.4-10.4); Platelet Count 248 thou/uL (130-400); RBC Distribution Width 14.3 % (11.5-14.5); Red Blood Cell (RBC) Count 4.01 mill/uL (4.20-5.40); White Blood Cell (WBC) Count 7.3 thou/uL (4.8-10.8)
[2020-09-07 05:36] LABS: BUN (Urea Nitrogen) 35 mg/dL (9.8-20.1); Calc. Creatinine Clearance 43 mL/min (70-130); Calcium 8.2 mg/dL (7.8-10.44); Estimated GFR-MDRD 40; Glucose 107 mg/dL (83-110)
[2020-09-07 05:43] LABS: Carbon Dioxide 33 mmol/L (23-31)
[2020-09-07 05:45] LABS: Chloride 93 mmol/L (98-107); Sodium 140 mmol/L (136-145)
[2020-09-07 05:47] LABS: Anion Gap 19 mmol/L (10-20)
[2020-09-07] MEDS: Dicyclomine 10 MG CAP PO SCH (08:50)
[2020-09-07] MEDS: Aspirin 81 mg Enteric Coated Tablet PO SCH (08:50)
[2020-09-07] MEDS: predniSONE 20 MG TAB PO SCH ×2 (08:50→18:11)
[2020-09-07] MEDS: Digoxin 0.125 MG TAB PO SCH (08:50)
[2020-09-07] MEDS: Citalopram 20 MG TAB PO SCH (08:51)
[2020-09-07] MEDS: Carbidopa/Levodopa 10-100 mg Tablet PO SCH ×3 (08:51→21:07)
[2020-09-07] MEDS: Famotidine 20 MG TAB PO SCH ×2 (08:51→21:07)
[2020-09-07] MEDS: Furosemide 40 MG TAB PO SCH (08:51)
[2020-09-07] MEDS: Lisinopril 5 MG TAB PO SCH (08:51)
[2020-09-07] MEDS: Albuterol Sulfate 2.5 mg/3 ml Neb NEB PRN ×2 (11:02→21:07)
[2020-09-07] MEDS: Atorvastatin Calcium 20 MG TAB PO SCH (21:07)
[2020-09-07] MEDS: Enoxaparin Sodium 40 MG/0.4 ML SYRINGE SC SCH (21:08)
[2020-09-08] MEDS: Levothyroxine Sodium 50 MCG TAB PO SCH (05:28)
[2020-09-08] MEDS: Aspirin 81 mg Enteric Coated Tablet PO SCH (08:44)
[2020-09-08] MEDS: predniSONE 20 MG TAB PO SCH (08:44)
[2020-09-08] MEDS: Lisinopril 5 MG TAB PO SCH (08:45)
[2020-09-08] MEDS: Furosemide 40 MG TAB PO SCH (08:45)
[2020-09-08] MEDS: Citalopram 20 MG TAB PO SCH (08:45)
[2020-09-08] MEDS: Dicyclomine 10 MG CAP PO SCH (08:45)
[2020-09-08] MEDS: Famotidine 20 MG TAB PO SCH ×2 (08:45→20:43)
[2020-09-08] MEDS: Carbidopa/Levodopa 10-100 mg Tablet PO SCH ×3 (08:45→20:43)
[2020-09-08] MEDS: Digoxin 0.125 MG TAB PO SCH (09:05)
[2020-09-08] MEDS: Albuterol Sulfate 2.5 mg/3 ml Neb NEB PRN ×2 (09:10→18:32)
[2020-09-08] MEDS: Benzonatate 100 MG CAP PO PRN (09:10)
--- NOTE | 2020-09-08 17:08 | PRG ---
DATE OF SERVICE: 09/08/2020 SUBJECTIVE: Ms. Sterling is doing well. She states that her cough has pretty much resolved. She is happy with her progress. Denies any questions or concerns. OBJECTIVE: VITAL SIGNS: She is afebrile. Heart rate 62, respirations 20, oxygen saturation 92% on 4 L, blood pressure 122/64. CARDIOVASCULAR: S1 and S2 plus. RESPIRATORY: Normal vesicular breath sounds. ABDOMEN: Soft and nontender. Bowel sounds heard in all quadrants. EXTREMITIES: Without cyanosis, clubbing. Trace edema. CENTRAL NERVOUS SYSTEM: Generalized weakness, otherwise nonfocal. LABORATORY DATA: Laboratory values done yesterday shows white count of 7.3, H and H are 11.8 and 39.5. Sodium 140, potassium 5.0, BUN and creatinine is 35 and 1.25, it was 27 and 0.99 on the 9th. IMPRESSION: 1. Chronic diastolic congestive heart failure. 2. Mild azotemia likely secondary to over-diuresis. 3. Anemia, likely of chronic disease. 4. Acute hypoxemic respiratory failure. 5. Resolving asthmatic bronchitis. 6. Parkinson disease. 7. Dyslipidemia. 8. Hypothyroidism. 9. Pulmonary hypertension. PLAN: 1. Continue current medication. 2. Decrease prednisone to once daily. 3. Heart-healthy diet. 4. Titrate oxygen. 5. Monitor respiratory status. 6. Physical therapy. 7. Routine laboratory values. 8. Monitor renal function. Job ID: [id number]
[2020-09-08] MEDS: Enoxaparin Sodium 40 MG/0.4 ML SYRINGE SC SCH (20:43)
[2020-09-08] MEDS: Atorvastatin Calcium 20 MG TAB PO SCH (20:43)
[2020-09-09] MEDS: Levothyroxine Sodium 50 MCG TAB PO SCH (05:25)
[2020-09-09] MEDS: Furosemide 40 MG TAB PO SCH (08:28)
[2020-09-09] MEDS: predniSONE 20 MG TAB PO SCH (08:28)
[2020-09-09] MEDS: Carbidopa/Levodopa 10-100 mg Tablet PO SCH ×3 (08:29→21:00)
[2020-09-09] MEDS: Famotidine 20 MG TAB PO SCH ×2 (08:29→21:00)
[2020-09-09] MEDS: Lisinopril 5 MG TAB PO SCH (08:29)
[2020-09-09] MEDS: Citalopram 20 MG TAB PO SCH (08:30)
[2020-09-09] MEDS: Digoxin 0.125 MG TAB PO SCH (08:30)
[2020-09-09] MEDS: Aspirin 81 mg Enteric Coated Tablet PO SCH (08:30)
[2020-09-09] MEDS: Dicyclomine 10 MG CAP PO SCH (08:31)
[2020-09-09] MEDS: Albuterol Sulfate 2.5 mg/3 ml Neb NEB PRN ×2 (13:52→21:00)
--- NOTE | 2020-09-09 16:54 | PRG ---
DATE OF SERVICE: SUBJECTIVE: Ms. Sterling is up in bed. She is enjoying snooze. She got a good lunch. She denies any questions or concerns. Her cough has pretty much resolved. OBJECTIVE: VITAL SIGNS: She is afebrile, heart rate 62, respirations 18, oxygen saturation 94% on 4 L, and blood pressure 127/66. CARDIOVASCULAR SYSTEM: S1, S2 plus. RESPIRATORY SYSTEM: Normal vesicular breath sounds. ABDOMEN: Soft and nontender. Bowel sounds heard in all quadrants. EXTREMITIES: Without cyanosis, clubbing. IMPRESSION: 1. Resolving acute on chronic diastolic congestive heart failure. 2. Possible Parkinson's disease. 3. Much improved asthmatic bronchitis. 4. Acute hypoxemic respiratory failure. 5. Dyslipidemia. 6. Hypothyroidism. 7. Pulmonary hypertension. 8. Deconditioning. PLAN: 1. Continue current medications. 2. Nutritional support with heart-healthy diet. 3. Monitor respiratory status. 4. DVT prophylaxis with Lovenox. 5. Decubitus precautions. 6. Stress ulcer prophylaxis. 7. Physical therapy. 8. Routine laboratory values. Job ID: [id number]
[2020-09-09] MEDS: Atorvastatin Calcium 20 MG TAB PO SCH (21:00)
[2020-09-09] MEDS: Benzonatate 100 MG CAP PO PRN (21:04)
[2020-09-09] MEDS: Enoxaparin Sodium 40 MG/0.4 ML SYRINGE SC SCH (21:04)
[2020-09-10] MEDS: Levothyroxine Sodium 50 MCG TAB PO SCH (05:52)
[2020-09-10] MEDS: Digoxin 0.125 MG TAB PO SCH (07:51)
[2020-09-10] MEDS: predniSONE 20 MG TAB PO SCH (07:52)
[2020-09-10] MEDS: Aspirin 81 mg Enteric Coated Tablet PO SCH (07:52)
[2020-09-10] MEDS: Famotidine 20 MG TAB PO SCH ×2 (07:52→20:26)
[2020-09-10] MEDS: Citalopram 20 MG TAB PO SCH (07:52)
[2020-09-10] MEDS: Dicyclomine 10 MG CAP PO SCH (07:52)
[2020-09-10] MEDS: Furosemide 40 MG TAB PO SCH (07:53)
[2020-09-10] MEDS: Carbidopa/Levodopa 10-100 mg Tablet PO SCH ×3 (07:53→20:26)
[2020-09-10] MEDS: Lisinopril 5 MG TAB PO SCH (07:53)
--- NOTE | 2020-09-10 11:24 | PRG ---
DATE OF SERVICE: 09/10/2020 SUBJECTIVE: Ms. Sterling is doing well. She is up in her chair. Denies any complaints. Cough has pretty much resolved. She is hoping to go home soon. I advised nursing to start titrating her oxygen down as long as oxygen saturations greater than 90%. OBJECTIVE: VITAL SIGNS: She is afebrile, heart rate 60, respirations 18, oxygen saturation 96% on 4 L, and blood pressure 108/65. CARDIOVASCULAR SYSTEM: S1 and S2 plus. RESPIRATORY SYSTEM: Normal vesicular breath sounds. ABDOMEN: Soft, obese, nontender. Bowel sounds heard in all quadrants. EXTREMITIES: Without cyanosis or clubbing. CENTRAL NERVOUS SYSTEM: Generalized weakness, otherwise nonfocal. IMPRESSION: 1. Resolving [id number] diastolic congestive heart failure. 2. Acute hypoxemic respiratory failure. 3. Dyslipidemia. 4. Possible Parkinson's. 5. Pulmonary hypertension. 6. Hypothyroidism. 7. Deconditioning. PLAN: 1. Continue current medications. 2. Heart healthy diet. 3. Monitor respiratory status and titrate oxygen as tolerated to keep saturation greater than 90%. 4. DVT prophylaxis with Lovenox. 5. Decubitus precautions. 6. Stress ulcer prophylaxis. 7. Physical therapy. 8. Routine laboratory values. 9. Discussed with the patient and nursing in detail. All questions answered. Job ID: [id number]
[2020-09-10] MEDS: Atorvastatin Calcium 20 MG TAB PO SCH (20:26)
[2020-09-10] MEDS: Enoxaparin Sodium 40 MG/0.4 ML SYRINGE SC SCH (20:26)
[2020-09-11] MEDS: Levothyroxine Sodium 50 MCG TAB PO SCH (05:41)
[2020-09-11] MEDS: Lisinopril 5 MG TAB PO SCH (08:59)
[2020-09-11] MEDS: Aspirin 81 mg Enteric Coated Tablet PO SCH (08:59)
[2020-09-11] MEDS: Carbidopa/Levodopa 10-100 mg Tablet PO SCH ×4 (08:59→20:17)
[2020-09-11] MEDS: Famotidine 20 MG TAB PO SCH ×2 (08:59→20:17)
[2020-09-11] MEDS: Dicyclomine 10 MG CAP PO SCH (09:00)
[2020-09-11] MEDS: predniSONE 20 MG TAB PO SCH (09:00)
[2020-09-11] MEDS: Furosemide 40 MG TAB PO SCH (09:00)
[2020-09-11] MEDS: Digoxin 0.125 MG TAB PO SCH (09:01)
[2020-09-11] MEDS: Citalopram 20 MG TAB PO SCH (09:02)
[2020-09-11 09:29] VITALS: BMI 31.7
--- NOTE | 2020-09-11 12:59 | PRG ---
DATE OF SERVICE: 09/11/2020 SUBJECTIVE: Ms. Sterling is doing well. Denies any complaints. Cough has pretty much resolved. She is down to 3 L of oxygen via nasal cannula. OBJECTIVE: VITAL SIGNS: Blood pressure is 118/58. Oxygen saturation still drops with activity, but comes right back up. Heart rate is 68. CARDIOVASCULAR SYSTEM: S1 and S2 plus. RESPIRATORY SYSTEM: Normal vesicular breath sounds. ABDOMEN: Soft, nontender. Bowel sounds heard in all quadrants. Obese. EXTREMITIES: Without cyanosis or clubbing. Trace edema. CENTRAL NERVOUS SYSTEM: Improving deconditioning. IMPRESSION: 1. Resolved acute on chronic diastolic congestive heart failure. 2. Chronic diastolic congestive heart failure. 3. Acute hypoxemic respiratory failure. 4. Pulmonary hypertension. 5. Dyslipidemia. 6. Parkinson. 7. Deconditioning. PLAN: 1. Continue current medications. 2. Nutritional support. 3. DVT prophylaxis with Lovenox. 4. Decubitus precautions. 5. Stress ulcer prophylaxis. 6. Routine laboratory values. 7. Physical therapy. 8. Continue to titrate oxygen. Job ID: [id number]
[2020-09-11] MEDS: Enoxaparin Sodium 40 MG/0.4 ML SYRINGE SC SCH (20:16)
[2020-09-11] MEDS: Atorvastatin Calcium 20 MG TAB PO SCH (20:17)
[2020-09-11] MEDS: Benzonatate 100 MG CAP PO PRN (20:18)
[2020-09-12] MEDS: Levothyroxine Sodium 50 MCG TAB PO SCH (05:16)
[2020-09-12] MEDS: Aspirin 81 mg Enteric Coated Tablet PO SCH (09:02)
[2020-09-12] MEDS: Dicyclomine 10 MG CAP PO SCH (09:02)
[2020-09-12] MEDS: Digoxin 0.125 MG TAB PO SCH (09:02)
[2020-09-12] MEDS: Famotidine 20 MG TAB PO SCH ×2 (09:02→20:33)
[2020-09-12] MEDS: Lisinopril 5 MG TAB PO SCH (09:03)
[2020-09-12] MEDS: Furosemide 40 MG TAB PO SCH (09:04)
[2020-09-12] MEDS: Citalopram 20 MG TAB PO SCH (09:04)
[2020-09-12] MEDS: predniSONE 20 MG TAB PO SCH (09:04)
--- NOTE | 2020-09-12 12:49 | PRG ---
DATE OF SERVICE: 09/12/2020 SUBJECTIVE: Ms. Sterling is doing well, up in bed, enjoying lunch. Insurance apparently denied any extension of her stay. Her last date is tomorrow. Oxygen saturation test done by therapy and she was 81% on room air at rest and 73% on room air with exertion. Her oxygen saturation increased to 87% on exertion with 4 L of oxygen. When she is resting, she really needs about 2-1/2 to 3 L, but since with exertion she needs 4 L, we will order 4 L of oxygen for her home for continuous use. She also needs Home Health and she states that she does not have a preference on the home health company. She had apparently just picked [facility] out of the list, but she states she has not used them before. She does not have any preference. She does not know anyone and I had told her that I had sent a referral to [facility] as I have been very satisfied with their care for my patients and she was fine with continuing with [facility] I did tell her I can switch it to [facility] if that is her preference and she said no. She just chose the name out of the list they gave her. I am not even sure if [facility] is on that list. She does not need any prescriptions. Plan is for her to discharge home. She does qualify for Home Health. She will need custodial visits as well as PT, OT. She is homebound. This note to be used as a [id number] for both oxygen and for home health. OBJECTIVE: VITAL SIGNS: Patient is afebrile, heart rate is 65, respirations 16, oxygen saturation at 2.5 L nasal cannula. CARDIOVASCULAR: S1, S2 plus. RESPIRATORY: Normal vesicular breath sounds. ABDOMEN: Soft, nontender, bowel sounds heard in all quadrants. EXTREMITIES: Without cyanosis, clubbing. CENTRAL NERVOUS SYSTEM: Generalized weakness. IMPRESSION: 1. Resolved acute on chronic diastolic congestive heart failure. 2. Acute hypoxemic respiratory failure. 3. Pulmonary hypertension. 4. Parkinson's. 5. Hypothyroidism. 6. Obesity. 7. Deconditioning. PLAN: 1. Continue current medications. 2. Nutritional support with heart healthy diet. 3. Arrange home oxygen. 4. Arrange home health with therapy. 5. DVT prophylaxis with Lovenox. 6. Decubitus precaution. 7. Stress ulcer prophylaxis. 8. Discharge to home tomorrow. 9. Discussed with the patient and nursing in detail. All questions answered. Job ID: [id number]
[2020-09-12] MEDS: Carbidopa/Levodopa 10-100 mg Tablet PO SCH ×2 (14:18→20:33)
[2020-09-12] MEDS: Albuterol Sulfate 2.5 mg/3 ml Neb NEB PRN (18:37)
[2020-09-12] MEDS: Atorvastatin Calcium 20 MG TAB PO SCH (20:33)
[2020-09-12] MEDS: Enoxaparin Sodium 40 MG/0.4 ML SYRINGE SC SCH (20:33)
[2020-09-13] MEDS: Levothyroxine Sodium 50 MCG TAB PO SCH (05:24)
[2020-09-13] MEDS: Lisinopril 5 MG TAB PO SCH (08:39)
[2020-09-13] MEDS: Dicyclomine 10 MG CAP PO SCH (08:39)
[2020-09-13] MEDS: Carbidopa/Levodopa 10-100 mg Tablet PO SCH ×2 (08:39→14:34)
[2020-09-13] MEDS: Famotidine 20 MG TAB PO SCH (08:39)
[2020-09-13] MEDS: Furosemide 40 MG TAB PO SCH (08:40)
[2020-09-13] MEDS: Citalopram 20 MG TAB PO SCH (08:40)
[2020-09-13] MEDS: Aspirin 81 mg Enteric Coated Tablet PO SCH (08:40)
[2020-09-13] MEDS: Digoxin 0.125 MG TAB PO SCH (08:40)
[2020-09-13 15:46] VITALS: BP 120/64; TEMP 96.7
--- NOTE | 2020-09-14 05:58 | DIS ---
DATE OF ADMISSION: 08/31/2020 DATE OF DISCHARGE: 09/13/2020 PRINCIPAL DIAGNOSIS: Resolved acute on chronic diastolic congestive heart failure. SECONDARY DIAGNOSES: 1. Chronic diastolic congestive heart failure. 2. Acute hypoxemic respiratory failure requiring home oxygen. 3. Hypothyroidism. 4. Parkinson disease. 5. Pulmonary hypertension. 6. Anxiety and depression. 7. Dyslipidemia. 8. Improving deconditioning. COMPLICATIONS: None. ADVERSE REACTIONS: None. PROCEDURES: None. CONSULTATIONS: Physical Therapy and Occupational Therapy. HOSPITAL COURSE: The patient was admitted on 08/[address] López after being at [facility] with acute on chronic diastolic congestive heart failure. She has been undergoing diuresis and was transferred here for therapy. She has been doing well with improving swelling. Her diuretics were decreased to once daily from twice a day due to hypotension and slight increase in her renal function. She also had episodes of cough and congestion, which was felt to be asthmatic bronchitis and she was started on p.o. steroids and breathing treatments and they really seem to help. She is currently still on oxygen, but at 2.5 L at rest, but needs 4 L with exercise. Arrangements for oxygen have been made. Her insurance apparently denied any further stay here, and the patient did not want to file an appeal. She is being discharged home with home health. [facility] has been arranged. Again, the patient is a candidate for home health due to her being homebound status and being just started on oxygen and needing continued therapy. She will need [facility] visit with PT and OT. DISCHARGE PHYSICAL EXAMINATION: VITAL SIGNS: On the day of discharge, she is afebrile, heart rate 63, respirations 20, oxygen saturation 92% on 2.5 L, and blood pressure 131/66. CARDIOVASCULAR SYSTEM: S1 and S2 plus. RESPIRATORY SYSTEM: Normal vesicular breath sounds. ABDOMEN: Soft, obese, nontender. Bowel sounds heard in all quadrants. EXTREMITIES: Without cyanosis or clubbing. Trace edema. CENTRAL NERVOUS SYSTEM: Generalized weakness, otherwise nonfocal. DISCHARGE MEDICATIONS: 1. Celexa 20 mg daily. 2. Bentyl 10 mg daily. 3. Digoxin 0.125 mg daily. 4. Pepcid 20 mg b.i.d. 5. Lasix 40 mg daily. 6. Levoxyl 50 mcg daily. 7. Lisinopril 2.5 mg daily. DISCHARGE INSTRUCTIONS: Heart healthy diet. Activity as tolerated. Home Health with PT, OT, and she is to follow up in my office in 3 weeks. She states that she does have prescriptions for all her medications, and if she needs any, she will call as she uses mail order. She is also on Sinemet 10/100 one tab b.i.d., Lipitor 20 mg daily, aspirin 81 mg daily. She was also encouraged to use the incentive spirometer on a regular basis. No family at bedside. TIME SPENT: Total time spent on this discharge 37 minutes. Job ID: [id number]
== END 2020-09-13 16:54 | disposition home health service (06) | DRG 291 ==
LOC: NAV ACUTE 18:18
PROVIDERS: ADMIT Internal Medicine; ATTEND Internal Medicine
PROC: 8E0ZXY6 Isolation (ICD-10-PCS; principal; 2020-09-05)
DX: I50.33 Acute on chronic diastolic (congestive) heart failure (principal); J96.01 Acute respiratory failure with hypoxia; I27.20 Pulmonary hypertension, unspecified; I35.0 Nonrheumatic aortic (valve) stenosis; Z20.828 Contact with and (suspected) exposure to other viral communicable diseases; E03.9 Hypothyroidism, unspecified; G20 Parkinson's disease; F41.9 Anxiety disorder, unspecified; J45.909 Unspecified asthma, uncomplicated; F32.9 Major depressive disorder, single episode, unspecified; E78.5 Hyperlipidemia, unspecified; D63.8 Anemia in other chronic diseases classified elsewhere; E66.01 Morbid (severe) obesity due to excess calories; R53.81 Other malaise; Z96.659 Presence of unspecified artificial knee joint; Z96.649 Presence of unspecified artificial hip joint; I95.2 Hypotension due to drugs; T50.2X5A Adverse effect of carbonic-anhydrase inhibitors, benzothiadiazides and other diuretics, initial encounter; Z90.49 Acquired absence of other specified parts of digestive tract; Z90.710 Acquired absence of both cervix and uterus; Z68.31 Body mass index [BMI] 31.0-31.9, adult
CPT/HCPCS: 36415; 71045; 80048; 80053; 83880; 85025; 87635; 90471; 90662; G0008; J1650; J7512; J7611; J7620; U0003

== ENCOUNTER 2020-12-11 00:18 | Emergency (ER) | payer MEDICARE, MEDICAID ==
[2020-12-11 01:15] LABS: Hemoglobin 15.6 g/dL (12.0-16.0); Mean Corpuscular HGB CONC 30.2 g/dL (32.0-36.0); Mean Corpuscular Hemoglobin 30.6 pg (27.0-31.0); Red Blood Cell (RBC) Count 5.08 mill/uL (4.20-5.40); White Blood Cell (WBC) Count 12.2 thou/uL (4.8-10.8)
[2020-12-11 01:16] LABS: %Eosinophils 0.3 % (0.0-10.0); %Lymphocytes 5.1 % (21.0-51.0); %Monocytes 5.2 % (0.0-10.0); Manual Diff?? NO; Mean Platelet Volume 8.5 fL (7.4-10.4); Platelet Count 91 thou/uL (130-400); RBC Distribution Width 13.4 % (11.5-14.5)
[2020-12-11 01:17] LABS: #Basophils 0.1 thou/uL (0.0-0.2); #Lymphocytes 0.6 thou/uL (1.20-3.40); #Monocytes 0.6 thou/uL (0.11-0.59); #Neutrophils 10.8 thou/uL (1.40-6.50); %Basophils 0.4 % (0.0-1.0)
[2020-12-11 01:31] LABS: ALT (SGPT) Less than 6 U/L (8-55); AST (SGOT) 15 U/L (5-34); Albumin 3.9 g/dL (3.4-4.8); Alkaline Phosphatase 81 U/L (40-110); Anion Gap 19 mmol/L (10-20); BUN (Urea Nitrogen) 22 mg/dL (9.8-20.1); Bilirubin, Total 0.6 mg/dL (0.2-1.2); Calc. Creatinine Clearance 0 mL/min (70-130); Calcium 9.1 mg/dL (7.8-10.44); Carbon Dioxide 22 mmol/L (23-31); Globulin 3.4 g/dL (2.4-3.5); Glucose 169 mg/dL (83-110); Protein, Total 7.3 g/dL (5.8-8.1); Sodium 139 mmol/L (136-145)
[2020-12-11 01:34] LABS: Chloride 103 mmol/L (98-107)
[2020-12-11] MEDS ORDERED: Levofloxacin 500 mg/D5W 100 ml Premix Bag ONE (01:37)
[2020-12-11 06:51] LABS: SARS-CoV-2 NAA Rapid Test Not Detected (NotDetected)
--- NOTE | 2020-12-11 07:37 | RAD ---
EXAM: Single view of the chest HISTORY: Dyspnea COMPARISON: 09/03/2020 FINDINGS: Single view of the chest shows an enlarged but stable cardiomediastinal silhouette. There is a large hiatal hernia. Increased interstitial markings are present. There has been improvement in the opacification of the left lower lobe No acute osseous abnormality. IMPRESSION: Improvement in left lower lobe infiltrate
== END 2020-12-11 04:11 | disposition short-term general hospital (02) ==
LOC: NAV ERS 00:18
DX: J18.9 Pneumonia, unspecified organism (principal); I11.0 Hypertensive heart disease with heart failure; I50.9 Heart failure, unspecified; Z20.822 Contact with and (suspected) exposure to COVID-19; J44.9 Chronic obstructive pulmonary disease, unspecified; E03.9 Hypothyroidism, unspecified; K21.9 Gastro-esophageal reflux disease without esophagitis; E78.5 Hyperlipidemia, unspecified; Z79.82 Long term (current) use of aspirin; Z79.899 Other long term (current) drug therapy
CPT/HCPCS: 0240U; 71045; 80053; 83605; 83880; 84484; 85025; 87040; 93005; 94760; 96365; J1956